=== PATIENT | male | born 1960 | race Caucasian/White ===

== ENCOUNTER 2018-07-08 18:49 | Emergency (ER) | payer MEDICARE, MEDICAID ==
[~2018-07-08] VITALS: Ht 180.3 cm; Wt 115.7 kg
--- OUTSIDE RECORDS SUMMARY | 2018-07-08 18:54 | XMS REPORT ---
Author Author SAIDA Medina [facility] Address Unknown Care Team Providers Care Research Methodologist Name Role Phone SAIDA Medina Unavailable PROBLEMS Unknown Problems ALLERGIES Substance Reaction Event Type Date Status N.K.D.A. Unknown Non Drug Allergy May, Unknown SOCIAL HISTORY No smoking Hx information available PLAN OF CARE VITAL SIGNS Blood pressure systolic 132 mmHg 2016-05-27 Blood pressure diastolic 88 mmHg 2016-05-27 MEDICATIONS Medication Instructions Dosage Frequency Start Date End Date Duration Status Oxycodone HCl Active Insulin Admin Supplies - Active RESULTS No Results PROCEDURES Procedure Date Ordered Related Diagnosis Body Site Dental no charge May 27, 2016 IMMUNIZATIONS No Known Immunizations
--- OUTSIDE RECORDS SUMMARY | 2018-07-08 18:54 | XMS REPORT ---
Author Author CORY ARORA Organization [employer] Address Unknown Phone Unavailable Care Team Providers Care Vice President Payer Name Role Phone CORY ARORA CP Unavailable Allergies, Adverse Reactions, Alerts Substance Reaction Event Type N.K.D.A. Info Not Available Non Drug Allergy Problems Problem Type Condition Code Onset Dates Condition Status Assessment Dental examination Z01.20 Active Medications Medication Code System Code Instructions Start Date End Date Status Dosage Oxycodone HCl [facility] [id number] not defined NovoLog [facility] [id number] not defined Levemir [facility] [id number] not defined Amoxicillin [facility] [address]-41 500 MG Orally Once a day Feb 26, 2015Jan 4 capsules one time Procedures Procedure Coding System Code Date INTRAORL-PERIAPICAL 1 FILM 58936 CPT-4 D0220 Feb 26, 2015 LTD ORAL EVALUATION - PROBLEM FOCUS CPT-4 D0140 Feb 26, 2015 Vital Signs Date/Time: Feb 26, 2015 Blood Pressure Diastolic 73 mmHg Blood Pressure Systolic 126 mmHg Results No Known Results Summary Purpose [employer] Submission
[2018-07-08 20:12] LABS: BASOPHILS % (AUTO) 0 % (0-10); EOSINOPHILS # (AUTO) 0.1 10^3/uL (0.0-0.3); EOSINOPHILS % (AUTO) 2 % (0-10); HEMATOCRIT 44 % (40-54); HEMOGLOBIN 14.8 G/DL (13.3-17.7); LYMPHOCYTES # (AUTO) 2.2 X 10^3 (1.0-4.0); LYMPHOCYTES % (AUTO) 29 % (12-44); MEAN CORPUSCULAR HEMOGLOBIN 28 PG (25-34); MEAN CORPUSCULAR HGB CONC 33 G/DL (32-36); MEAN CORPUSCULAR VOLUME 85 FL (80-99); MEAN PLATELET VOLUME 11.3 FL (7.4-10.4); MONOCYTES # (AUTO) 0.6 X 10^3 (0.0-1.0); MONOCYTES % (AUTO) 8 % (0-12); NEUTROPHILS # (AUTO) 4.6 X 10^3 (1.8-7.8); NEUTROPHILS % (AUTO) 62 % (42-75); PLATELET COUNT 153 10^3/uL (130-400); RED CELL DISTRIBUTION WIDTH 13.3 % (10.0-14.5); WHITE BLOOD COUNT 7.5 10^3/uL (4.3-11.0)
[2018-07-08 20:24] LABS: PROTHROMBIN TIME PATIENT 12.8 SEC (12.2-14.7)
[2018-07-08 20:25] VITALS: BP 105/64
[2018-07-08 20:31] LABS: ALBUMIN 4.1 GM/DL (3.2-4.5); BILIRUBIN,TOTAL 0.5 MG/DL (0.1-1.0); CALCIUM 8.9 MG/DL (8.5-10.1); CREATININE SERUM 1.24 MG/DL (0.60-1.30); POTASSIUM 4.6 MMOL/L (3.6-5.0); TOTAL PROTEIN 6.7 GM/DL (6.4-8.2)
--- NOTE | 2018-07-08 21:00 | Diagnostic Imaging Report ---
EXAMINATION: Right foot at 8:26 PM INDICATION: Ulcer Three views were obtained. There are no prior studies available for comparison. There is a suggestion of a soft tissue ulcer along the medial aspect of the interphalangeal joint of the great toe. The osseous structures in this area are unremarkable. There is no sign of bony destruction to indicate osteomyelitis. No other acute bony abnormality is appreciated. The Lisfranc joint is well maintained. There are degenerative and posttraumatic changes involving the ankle joint. Also, there are small wire-like metallic foreign bodies in the soft tissues along the plantar aspect of the forefoot and hindfoot. A prominent calcaneal spur is noted as well. IMPRESSION: 1. There is a small soft tissue ulcer along the medial aspect of the great toe. There is no evidence for osteomyelitis, however. 2. If clinical concern regarding osteomyelitis persists, then either a nuclear medicine three-phase bone scan or MRI would be recommended. However, the MRI may not be able to be performed due to the small radiopaque metallic foreign bodies in the foot. Dictated by: Dictated on workstation # [id number]
--- NOTE | 2018-07-08 21:01 | NUR ---
ASSUMED CARE OF PT @ THIS TIME.
[2018-07-08] MEDS ORDERED: LEVO500T2 PO (21:13)
--- NOTE | 2018-07-08 21:14 | ED Integumentary General ---
General Chief Complaint: Skin/Wound Problems Stated Complaint: SORE ON FOOT Nursing Triage Note: pt has diabetic wound on superior right foot. pt reports it starting bleeding 2 hours ago. pt went to [place] [facility] and they advised him to come here. pt reports having surgery on wound one year ago and didn't have problems with it until today. Source: patient Exam Limitations: no limitations History of Present Illness Date Seen by Provider: Jul 08, 2018 Time Seen by Provider: 19:52 Past Ayqmuhx-Xiklki-Jytajx Hx Patient Social History Recent Foreign Travel: No Contact w/Someone Who Travel: No Recent Infectious Disease Expo: No Recent Hopitalizations: No Past Medical History Surgeries: Yes Gallbladder Respiratory: No Cardiac: No Neurological: Yes (brain anuerysm ) Genitourinary: No Gastrointestinal: No Musculoskeletal: No Endocrine: Yes Diabetes, Non-Insulin dep HEENT: No Cancer: No Psychosocial: No Recent Skin Changes Physical Exam Vital Signs Vital Signs - First Documented 07/08/18 19:21 Temp 98.6 Pulse 75 Resp 20 B/P (MAP) 131/73 (92) Pulse Ox 95 O2 Delivery Room Air Capillary Refill : Less Than 3 Seconds Progress/Results/Core Measures Results/Orders Lab Results Laboratory Tests Test 07/08/18 20:00 Range/Units White Blood Count 7.5 4.3-11.0 10^3/uL Red Blood Count 5.22 4.35-5.85 10^6/uL Hemoglobin 14.8 13.3-17.7 G/DL Hematocrit 44 40-54 % Mean Corpuscular Volume 85 80-99 FL Mean Corpuscular Hemoglobin 28 25-34 PG Mean Corpuscular Hemoglobin Concent 33 32-36 G/DL Red Cell Distribution Width 13.3 10.0-14.5 % Platelet Count 153 130-400 10^3/uL Mean Platelet Volume 11.3 H 7.4-10.4 FL Neutrophils (%) (Auto) 62 42-75 % Lymphocytes (%) (Auto) 29 12-44 % Monocytes (%) (Auto) 8 0-12 % Eosinophils (%) (Auto) 2 0-10 % Basophils (%) (Auto) 0 0-10 % Neutrophils # (Auto) 4.6 1.8-7.8 X 10^3 Lymphocytes # (Auto) 2.2 1.0-4.0 X 10^3 Monocytes # (Auto) 0.6 0.0-1.0 X 10^3 Eosinophils # (Auto) 0.1 0.0-0.3 10^3/uL Basophils # (Auto) 0.0 0.0-0.1 10^3/uL Prothrombin Time 12.8 12.2-14.7 SEC INR Comment 1.0 0.8-1.4 Activated Partial Thromboplast Time 28 24-35 SEC Sodium Level 139 135-145 MMOL/L Potassium Level 4.6 3.6-5.0 MMOL/L Chloride Level 105 98-107 MMOL/L Carbon Dioxide Level 23 21-32 MMOL/L Anion Gap 11 5-14 MMOL/L Blood Urea Nitrogen 20 H 7-18 MG/DL Creatinine 1.24 0.60-1.30 MG/DL Estimat Glomerular Filtration Rate 60 BUN/Creatinine Ratio 16 Glucose Level 311 H 70-105 MG/DL Lactic Acid Level 1.04 0.50-2.00 MMOL/L Calcium Level 8.9 8.5-10.1 MG/DL Corrected Calcium 8.8 8.5-10.1 MG/DL Total Bilirubin 0.5 0.1-1.0 MG/DL Aspartate Amino Transf (AST/SGOT) 23 5-34 U/L Alanine Aminotransferase (ALT/SGPT) 19 0-55 U/L Alkaline Phosphatase 62 40-136 U/L C-Reactive Protein High Sensitivity 3.57 H 0.00-0.50 MG/DL Total Protein 6.7 6.4-8.2 GM/DL Albumin 4.1 3.2-4.5 GM/DL My Orders Orders - NOLAN BLANDON Cbc With Automated Diff (07/08/18 19:50) Comprehensive Metabolic Panel (07/08/18 19:50) Blood Culture (07/08/18 19:50) Protime With Inr (07/08/18 19:50) Partial Thromboplastin Time (07/08/18 19:50) Saline Lock/Iv-Start (07/08/18 19:50) Vital Signs Adult Sepsis Patie Q15M (07/08/18 19:50) O2 (07/08/18 19:50) Remove Rings In Anticipation O (07/08/18 19:50) Wound Culture (07/08/18 19:50) Lactic Acid Analyzer (07/08/18 19:50) Hs C Reactive Protein (07/08/18 19:50) Foot, Right, 3 View (07/08/18 19:50) Vital Signs/I&O 07/08/18 07/08/18 07/08/18 19:21 20:25 20:25 Temp 98.6 99.3 99.3 Pulse 75 72 72 Resp 20 14 10 B/P (MAP) 131/73 (92) 105/64 (78) 105/64 Pulse Ox 95 94 94 O2 Delivery Room Air Room Air Room Air Blood Pressure Mean: 78 Departure Impression Primary Impression: Diabetic ulcer of foot associated with type 1 diabetes mellitus, limited to breakdown of skin Disposition: HOME, SELF-CARE Condition: Stable/Unchanged Departure-Patient Inst. Decision time for Depature: 21:10 Referrals: NO,LOCAL PHYSICIAN (PCP) Primary Care Physician VERN WESTFALL MICHAEL G MD Patient Instructions: Diabetic Foot Ulcer (DC), Wound Care (DC) Add. Discharge Instructions: Take medication as directed. Monitor your blood sugar closely. Follow-up with Dr. Aaron at wound care by calling to schedule an appointment first thing Tuesday morning. Follow-up with [facility] within 1 week for recheck. Use the antibiotic ointment that was provided to change the dressing twice a day or if it becomes soiled. Return back to the emergency room should you start to develop fever, drainage, pain, worsening symptoms, or any other concerns as needed. All discharge instructions reviewed with patient and/or family. Voiced understanding. Scripts Levofloxacin (Levaquin) 500 Mg Tablet 500 MG PO DAILY for 10 Days, #10 TAB Prov: NOLAN BLANDON 07/08/18 NOLAN BLANDON Jul 08, 2018 21:14
[2018-07-08] MEDS ORDERED: LEVOFLOXACIN 500 MG TAB (LEVAQUIN) PO ONE (21:15)
[2018-07-08] MEDS ORDERED: MUPIROCIN 2% OINT 22 GM (BACTROBAN) TUBE ONE (21:21)
[2018-07-08 21:53] VITALS: BP 119/76
[2018-07-09] MEDS ORDERED: MUPIROCIN 2% OINT 22 GM (BACTROBAN) TUBE TOP SCH (09:00)
== END 2018-07-08 21:55 | disposition home or self-care (01) ==
LOC: ER 18:52
DX: E10.621 Type 1 diabetes mellitus with foot ulcer (principal); L97.511 Non-pressure chronic ulcer of other part of right foot limited to breakdown of skin; Z98.890 Other specified postprocedural states
CPT/HCPCS: 36415; 73630; 80053; 83605; 85025; 85610; 85730; 86141; 87040; 87070; 87077; 87205

== ENCOUNTER → 2018-07-12 | Outpatient (CLI) | payer MEDICARE, MEDICAID ==
[~2018-07-12] MED LIST: LEVO500T2 PO
== END ==
LOC: WOUNDCARE 09:22
PROVIDERS: ATTEND Surgery
DX: E11.621 Type 2 diabetes mellitus with foot ulcer (principal); I70.235 Atherosclerosis of native arteries of right leg with ulceration of other part of foot; L97.512 Non-pressure chronic ulcer of other part of right foot with fat layer exposed; E11.42 Type 2 diabetes mellitus with diabetic polyneuropathy; R54 Age-related physical debility; E66.01 Morbid (severe) obesity due to excess calories; Z68.35 Body mass index [BMI] 35.0-35.9, adult
CPT/HCPCS: 11042; 87070; 87205

== ENCOUNTER → 2018-07-25 | Outpatient (CLI) | payer MEDICARE, MEDICAID | LOC: WOUNDCARE 14:51 | PROVIDERS: ATTEND Surgery | DX: E11.621 Type 2 diabetes mellitus with foot ulcer (principal); E11.42 Type 2 diabetes mellitus with diabetic polyneuropathy; L97.512 Non-pressure chronic ulcer of other part of right foot with fat layer exposed; I70.235 Atherosclerosis of native arteries of right leg with ulceration of other part of foot; R54 Age-related physical debility; E66.01 Morbid (severe) obesity due to excess calories | CPT/HCPCS: 11042 ==

== ENCOUNTER → 2018-08-02 | Outpatient (CLI) | payer MEDICARE, MEDICAID | LOC: WOUNDCARE 10:12 | PROVIDERS: ATTEND Surgery | DX: E11.621 Type 2 diabetes mellitus with foot ulcer (principal); E11.42 Type 2 diabetes mellitus with diabetic polyneuropathy; L97.512 Non-pressure chronic ulcer of other part of right foot with fat layer exposed; E66.01 Morbid (severe) obesity due to excess calories; R54 Age-related physical debility | CPT/HCPCS: 99212 ==

== ENCOUNTER → 2018-08-09 | Outpatient (CLI) | payer MEDICARE, MEDICAID | LOC: WOUNDCARE 09:25 | PROVIDERS: ATTEND Surgery | DX: E11.621 Type 2 diabetes mellitus with foot ulcer (principal); L97.512 Non-pressure chronic ulcer of other part of right foot with fat layer exposed; E11.42 Type 2 diabetes mellitus with diabetic polyneuropathy; R54 Age-related physical debility; E66.01 Morbid (severe) obesity due to excess calories; Z68.35 Body mass index [BMI] 35.0-35.9, adult | CPT/HCPCS: 99212 ==

== ENCOUNTER → 2019-10-08 | Outpatient (CLI) | payer MEDICARE, MEDICAID ==
[~2019-10-08] MED LIST changes: +CATHETER FLUSH 10 ML SYR IV PRN; +HOLD METFORMIN - RECEIVED CONTRAST 20 ML VIAL IV SCH; +IOHEXOL 350 MG/ML 100 ML (OMNIPAQUE 350) VIAL IV ONE; +NS 100 ML (IVPB) BAG IV ONE
[2019-10-08 13:59] LABS: BUN/CREATININE RATIO 22; CALCIUM 9.1 MG/DL (8.5-10.1); CARBON DIOXIDE 22 MMOL/L (21-32); CHLORIDE 107 MMOL/L (98-107); CREATININE SERUM 1.06 MG/DL (0.60-1.30); GFR ESTIMATED > 60; GLUCOSE 97 MG/DL (70-105); POTASSIUM 4.5 MMOL/L (3.6-5.0); SODIUM 143 MMOL/L (135-145)
[2019-10-08 14:00] LABS: ALANINE AMINOTRANSFERASE 16 U/L (0-55); ALKALINE PHOSPHATASE 62 U/L (40-136); BILIRUBIN,TOTAL 0.4 MG/DL (0.1-1.0); TOTAL PROTEIN 6.5 GM/DL (6.4-8.2)
[2019-10-08 14:01] LABS: ALBUMIN 3.8 GM/DL (3.2-4.5)
--- NOTE | 2019-10-08 16:27 | Diagnostic Imaging Report ---
PROCEDURE: CT abdomen and pelvis with and without contrast. TECHNIQUE: Precontrast acquisitions were acquired through the abdomen and pelvis. Multiple contiguous axial images were obtained through the abdomen and pelvis after the administration of intravenous contrast. Auto Exposure Controls were utilized during the CT exam to meet ALARA standards for radiation dose reduction. INDICATION: Lower abdominal pain. COMPARISON: No prior studies are available for comparison. FINDINGS: The lung bases are clear. No discrete liver mass is detected. The gallbladder is surgically absent. No biliary ductal dilatation is identified. The pancreas and spleen are unremarkable. No adrenal mass is detected. Low-density lesion in the left kidney is noted measuring approximately 16 mm in size and most suggestive of a cyst. There is a hyperdense lesion in the posterior right kidney measuring approximately 5 to 6 mm in size. No significant enhancement is seen. This most like represents a hemorrhagic cyst. Even so, close follow-up would be recommended. Aorta is calcified but nonaneurysmal. No central retroperitoneal or mesenteric lymphadenopathy is identified. The small and large bowel loops are normal caliber. There is no free fluid or fluid collection identified. Bladder is decompressed. The prostate is unremarkable. No pelvic lymphadenopathy is detected. IMPRESSION: 1. Simple left renal cyst and probable tiny hemorrhagic right renal cyst. Even so, follow-up CT to confirm stability of the right renal lesion would be recommended. 2. No evidence of abdominal or pelvic lymphadenopathy or acute abnormality. Dictated by: Dictated on workstation # [id number]
== END ==
LOC: RAD FS 12:35
PROVIDERS: ATTEND Nurse Practitioner Family
DX: R10.9 Unspecified abdominal pain (principal); Z71.9 Counseling, unspecified
CPT/HCPCS: 36415; 74178; 80053

== ENCOUNTER → 2019-10-22 | Outpatient (CLI) | payer MEDICARE, MEDICAID ==
[~2019-10-22] MED LIST changes: -CATHETER FLUSH 10 ML SYR IV PRN; -HOLD METFORMIN - RECEIVED CONTRAST 20 ML VIAL IV SCH; -IOHEXOL 350 MG/ML 100 ML (OMNIPAQUE 350) VIAL IV ONE; -NS 100 ML (IVPB) BAG IV ONE
== END ==
LOC: WOUNDCARE 10:07
PROVIDERS: ATTEND Surgery
DX: E11.621 Type 2 diabetes mellitus with foot ulcer (principal); E11.42 Type 2 diabetes mellitus with diabetic polyneuropathy; E11.65 Type 2 diabetes mellitus with hyperglycemia; E11.52 Type 2 diabetes mellitus with diabetic peripheral angiopathy with gangrene; I96 Gangrene, not elsewhere classified; L97.512 Non-pressure chronic ulcer of other part of right foot with fat layer exposed; L03.115 Cellulitis of right lower limb
CPT/HCPCS: 11042; A6196; G0463

== ENCOUNTER 2020-01-11 14:23 | Emergency (ER) | payer MEDICARE, MEDICAID ==
[~2020-01-11] VITALS: Ht 180.3 cm; Wt 113.4 kg
[2020-01-11 14:29] VITALS: BP 175/92
--- NOTE | 2020-01-11 14:45 | ED Integumentary General ---
General Chief Complaint: Skin/Wound Problems Stated Complaint: R FOOT TOE ULCER Nursing Triage Note: PT AMB TO [facility] 6 WITH COMPLAINT OF CHRONIC UCLER ON RIGHT TOE. STATES WAS SENT HERE BY [facility] IN [place]. Source: patient Exam Limitations: no limitations History of Present Illness Date Seen by Provider: Jan 11, 2020 Time Seen by Provider: 14:28 Initial Comments Patient resents ER by private conveyance from his home in [place] with chief complaint of a one year-old wound in his right toe. He has been self doctoring it as well as has occasionally follow with Dr. Gonzalez in wound care. He follows with the clinic at [place] with [facility]. He says today they told him to come down to the ER to see if they could do something about it. Called the provider at the [place] clinic who is seeing him for a nursing visit and felt that the wound is worse so they ordered an x-ray of his foot which showed no signs of osteomyelitis. Because the patient was frustrated that this wound has not healed in the past year and was getting worse the ER and told him to come to the ER for further evaluation. The patient's not having any fever nausea vomiting. He is diabetic. Does not know his diabetic A1c. He has follow-up in the past with [facility] according to the RN and was last seen in early October. At that time he was offered wound care but the patient refused the referral stating he does not have an gasoline to come down here several times a week. At that time he was following in the clinic 2-3 times a week to have the wound changed by nursing staff. Patient is otherwise a poor historian. The patient is not on antibiotics at this time. Allergies and Home Medications Allergies Coded Allergies: No Known Drug Allergies (Unverified , 07/08/18) Home Medications Levofloxacin 500 Mg Tablet, 500 MG PO DAILY Prescribed by: NOLAN BLANDON on 07/08/182112 Sulfamethoxazole/Trimethoprim 1 Each Tablet, 1 EACH PO BID Prescribed by: REKHA ALBERTO on 01/11/20 1507 Patient Home Medication List Home Medication List Reviewed: Yes Review of Systems Review of Systems Constitutional: No chills, No diaphoresis, No fever, No malaise, No weakness EENTM: No hearing loss, No ear pain, No tearing Respiratory: No cough, No short of breath Cardiovascular: No chest pain, No edema Gastrointestinal: No abdominal pain, No nausea, No vomiting Genitourinary: No discharge, No dysuria Musculoskeletal: No back pain, No joint pain Skin: see HPI All Other Systems Reviewed Negative Unless Noted: Yes Past Cbctbqb-Oirpdt-Zajxqe Hx Patient Social History Alcohol Use: Denies Use Recreational Drug Use: Yes Drug of Choice: MARIJUANA Smoking Status: Never a Smoker Recent Foreign Travel: No Contact w/Someone Who Travel: No Recent Infectious Disease Expo: No Recent Hopitalizations: No Immunizations Up To Date Tetanus Booster (TDap): Unknown Past Medical History Surgeries: Yes Gallbladder Respiratory: No Cardiac: No Neurological: Yes (brain anuerysm ) Genitourinary: No Gastrointestinal: No Musculoskeletal: No Endocrine: Yes Diabetes, Non-Insulin dep HEENT: No Cancer: No Psychosocial: No Recent Skin Changes Physical Exam Vital Signs Vital Signs - First Documented 01/11/20 14:29 Temp 36.3 Pulse 80 Resp 20 B/P (MAP) 175/92 (119) Pulse Ox 96 O2 Delivery Room Air Capillary Refill : Less Than 3 Seconds General Appearance: WD/WN, no apparent distress HEENT: PERRL/EOMI, pharynx normal Neck: full range of motion, normal inspection Cardiovascular: normal peripheral pulses, regular rate, rhythm Respiratory: normal breath sounds, no respiratory distress, no accessory muscle use Gastrointestinal: normal bowel sounds, non tender Neurologic/Psychiatric: alert, oriented x 3 Skin: other (tunneling unstageable wound on his right great toe without exudate. Dressed with some lu foam.) Progress/Results/Core Measures Results/Orders Lab Results Laboratory Tests Test 01/11/20 14:42 Range/Units White Blood Count 6.4 4.3-11.0 10^3/uL Red Blood Count 5.81 4.35-5.85 10^6/uL Hemoglobin 16.3 13.3-17.7 G/DL Hematocrit 49 40-54 % Mean Corpuscular Volume 84 80-99 FL Mean Corpuscular Hemoglobin 28 25-34 PG Mean Corpuscular Hemoglobin Concent 34 32-36 G/DL Red Cell Distribution Width 13.8 10.0-14.5 % Platelet Count 172 130-400 10^3/uL Mean Platelet Volume 11.3 H 7.4-10.4 FL Neutrophils (%) (Auto) 53 42-75 % Lymphocytes (%) (Auto) 35 12-44 % Monocytes (%) (Auto) 8 0-12 % Eosinophils (%) (Auto) 3 0-10 % Basophils (%) (Auto) 1 0-10 % Neutrophils # (Auto) 3.4 1.8-7.8 X 10^3 Lymphocytes # (Auto) 2.3 1.0-4.0 X 10^3 Monocytes # (Auto) 0.5 0.0-1.0 X 10^3 Eosinophils # (Auto) 0.2 0.0-0.3 10^3/uL Basophils # (Auto) 0.0 0.0-0.1 10^3/uL Sodium Level 141 135-145 MMOL/L Potassium Level 4.3 3.6-5.0 MMOL/L Chloride Level 105 98-107 MMOL/L Carbon Dioxide Level 26 21-32 MMOL/L Anion Gap 10 5-14 MMOL/L Blood Urea Nitrogen 16 7-18 MG/DL Creatinine 0.96 0.60-1.30 MG/DL Estimat Glomerular Filtration Rate > 60 BUN/Creatinine Ratio 17 Glucose Level 107 H 70-105 MG/DL Calcium Level 9.7 8.5-10.1 MG/DL Corrected Calcium 9.6 8.5-10.1 MG/DL Total Bilirubin 0.4 0.1-1.0 MG/DL Aspartate Amino Transf (AST/SGOT) 16 5-34 U/L Alanine Aminotransferase (ALT/SGPT) 14 0-55 U/L Alkaline Phosphatase 51 40-136 U/L C-Reactive Protein High Sensitivity 0.82 H 0.00-0.50 MG/DL Total Protein 7.2 6.4-8.2 GM/DL Albumin 4.1 3.2-4.5 GM/DL My Orders Orders - REKHA ALBERTO Cbc With Automated Diff (01/11/20 14:34) Comprehensive Metabolic Panel (01/11/20 14:34) Hs C Reactive Protein (01/11/20 14:34) Vital Signs/I&O 01/11/20 14:29 Temp 36.3 Pulse 80 Resp 20 B/P (MAP) 175/92 (119) Pulse Ox 96 O2 Delivery Room Air Blood Pressure Mean: 119 Progress Progress Note #1: Time: 14:49 Progress Note Called the wound care clinic and they are already out for the day. Patient has aseptic vital signs. Wound appears chronic and tunneling. Unstageable. Progress Note #2: Time: 15:[address] Patterson will follow the patient outpatient. We have called left a voicemail with patient navigator at [facility] to follow-up with the patient and help with transportation. If his labs are unremarkable then we'll allow him to travel home. Consults : Consulting Physician: LANA PATTERSON MD Consults Notes Discussed the case with Dr. Patterson and he agrees see the patient in the clinic if he'll call for an appointment on Tuesday. He wants the wound Dry and to start antibiotics. Departure Impression Primary Impression: Diabetic foot ulcer associated with type 2 diabetes mellitus, with fat layer exposed Qualified Codes: E11.621 - Type 2 diabetes mellitus with foot ulcer; L97.512 - Non-pressure chronic ulcer of other part of right foot with fat layer exposed Disposition: HOME, SELF-CARE Condition: Stable Departure-Patient Inst. Decision time for Depature: 15:05 Referrals: [facility] (PCP/Family) Primary Care Physician LANA PATTERSON MD Patient Instructions: Diabetic Foot Ulcer (DC) Add. 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 Tuesday morning call Dr. Patterson, general surgeon and request a follow-up appointment in the clinic. Speak to the patient navigator at [facility] to see what resources are available to help with transportation. Return to the nearest ER if you should experience fever, nausea, or other worrisome symptoms. There is an emergency room in [place]. All discharge instructions reviewed with patient and/or family. Voiced understanding. Scripts Sulfamethoxazole/Trimethoprim (Bactrim Ds Tablet) 1 Each Tablet 1 EACH PO BID for 7 Days, #14 TAB 0 Refills Prov: REKHA ALBERTO 01/11/20 Copy Copies To 1: VERN WESTFALL DO; LANA PATTERSON MD, TITUS J Jan 11, 2020 14:45
[2020-01-11 14:52] LABS: BASOPHILS % (AUTO) 1 % (0-10); EOSINOPHILS # (AUTO) 0.2 10^3/uL (0.0-0.3); EOSINOPHILS % (AUTO) 3 % (0-10); HEMATOCRIT 49 % (40-54); HEMOGLOBIN 16.3 G/DL (13.3-17.7); LYMPHOCYTES # (AUTO) 2.3 X 10^3 (1.0-4.0); LYMPHOCYTES % (AUTO) 35 % (12-44); MEAN CORPUSCULAR HEMOGLOBIN 28 PG (25-34); MEAN CORPUSCULAR HGB CONC 34 G/DL (32-36); MEAN CORPUSCULAR VOLUME 84 FL (80-99); MEAN PLATELET VOLUME 11.3 FL (7.4-10.4); MONOCYTES # (AUTO) 0.5 X 10^3 (0.0-1.0); MONOCYTES % (AUTO) 8 % (0-12); NEUTROPHILS # (AUTO) 3.4 X 10^3 (1.8-7.8); NEUTROPHILS % (AUTO) 53 % (42-75); PLATELET COUNT 172 10^3/uL (130-400); WHITE BLOOD COUNT 6.4 10^3/uL (4.3-11.0)
[2020-01-11 15:01] LABS: ALBUMIN 4.1 GM/DL (3.2-4.5); CHLORIDE 105 MMOL/L (98-107); POTASSIUM 4.3 MMOL/L (3.6-5.0); SODIUM 141 MMOL/L (135-145)
[2020-01-11 15:02] LABS: CALCIUM 9.7 MG/DL (8.5-10.1)
[2020-01-11 15:04] LABS: GLUCOSE 107 MG/DL (70-105); TOTAL PROTEIN 7.2 GM/DL (6.4-8.2)
[2020-01-11 15:05] LABS: BILIRUBIN,TOTAL 0.4 MG/DL (0.1-1.0); CARBON DIOXIDE 26 MMOL/L (21-32)
[2020-01-11 15:07] LABS: ALKALINE PHOSPHATASE 51 U/L (40-136); CREATININE SERUM 0.96 MG/DL (0.60-1.30); GFR ESTIMATED > 60
[2020-01-11] MEDS ORDERED: SULF1TAB35 PO (15:07)
[2020-01-11 15:08] LABS: BUN/CREATININE RATIO 17
[2020-01-11 15:10] LABS: ALANINE AMINOTRANSFERASE 14 U/L (0-55)
== END 2020-01-11 15:20 | disposition home or self-care (01) ==
LOC: EDUNIT# 14:23 → ER 14:24
DX: E11.621 Type 2 diabetes mellitus with foot ulcer (principal); L97.512 Non-pressure chronic ulcer of other part of right foot with fat layer exposed
CPT/HCPCS: 36415; 80053; 85025; 86141

== ENCOUNTER → 2020-01-16 | Outpatient (CLI) | payer MEDICARE, MEDICAID ==
[~2020-01-16] MED LIST changes: +SULF1TAB35 PO
== END ==
LOC: WOUNDCARE 12:36
PROVIDERS: ATTEND Surgery
DX: E11.621 Type 2 diabetes mellitus with foot ulcer (principal); L97.514 Non-pressure chronic ulcer of other part of right foot with necrosis of bone; E11.42 Type 2 diabetes mellitus with diabetic polyneuropathy; E11.65 Type 2 diabetes mellitus with hyperglycemia; M86.471 Chronic osteomyelitis with draining sinus, right ankle and foot
CPT/HCPCS: 11044; 87070; 87205; A6260; G0463; L4360; 87077

== ENCOUNTER → 2020-01-16 | Outpatient (CLI) | payer MEDICARE, MEDICAID | LOC: LAB 14:10 | PROVIDERS: ATTEND Surgery | DX: E11.621 Type 2 diabetes mellitus with foot ulcer (principal); E11.42 Type 2 diabetes mellitus with diabetic polyneuropathy; L97.514 Non-pressure chronic ulcer of other part of right foot with necrosis of bone; E11.65 Type 2 diabetes mellitus with hyperglycemia; M86.471 Chronic osteomyelitis with draining sinus, right ankle and foot | CPT/HCPCS: 36415; 83036; 85652 ==

== ENCOUNTER → 2020-01-28 | Outpatient (CLI) | payer MEDICARE, MEDICAID | LOC: WOUNDCARE 10:08 | PROVIDERS: ATTEND Surgery | DX: E11.621 Type 2 diabetes mellitus with foot ulcer (principal); E11.42 Type 2 diabetes mellitus with diabetic polyneuropathy; L97.516 Non-pressure chronic ulcer of other part of right foot with bone involvement without evidence of necrosis; E11.65 Type 2 diabetes mellitus with hyperglycemia; M86.471 Chronic osteomyelitis with draining sinus, right ankle and foot; E11.52 Type 2 diabetes mellitus with diabetic peripheral angiopathy with gangrene | CPT/HCPCS: 11042; G0463 ==

== ENCOUNTER → 2020-02-04 | Outpatient (CLI) | payer MEDICARE, MEDICAID | LOC: WOUNDCARE 10:42 | PROVIDERS: ATTEND Surgery | DX: E11.621 Type 2 diabetes mellitus with foot ulcer (principal); E11.42 Type 2 diabetes mellitus with diabetic polyneuropathy; L97.516 Non-pressure chronic ulcer of other part of right foot with bone involvement without evidence of necrosis; E11.65 Type 2 diabetes mellitus with hyperglycemia; M86.471 Chronic osteomyelitis with draining sinus, right ankle and foot; E11.52 Type 2 diabetes mellitus with diabetic peripheral angiopathy with gangrene | CPT/HCPCS: 11042; G0463 ==

== ENCOUNTER → 2020-02-11 | Outpatient (CLI) | payer MEDICARE, MEDICAID | LOC: WOUNDCARE 10:28 | PROVIDERS: ATTEND Surgery | DX: E11.621 Type 2 diabetes mellitus with foot ulcer (principal); E11.42 Type 2 diabetes mellitus with diabetic polyneuropathy; L97.516 Non-pressure chronic ulcer of other part of right foot with bone involvement without evidence of necrosis; E11.65 Type 2 diabetes mellitus with hyperglycemia; M86.471 Chronic osteomyelitis with draining sinus, right ankle and foot; E11.52 Type 2 diabetes mellitus with diabetic peripheral angiopathy with gangrene | CPT/HCPCS: 11044 ==

== ENCOUNTER → 2020-02-18 | Outpatient (CLI) | payer MEDICARE, MEDICAID | LOC: WOUNDCARE 10:12 | PROVIDERS: ATTEND Surgery | DX: I96 Gangrene, not elsewhere classified (principal); E11.621 Type 2 diabetes mellitus with foot ulcer; E11.42 Type 2 diabetes mellitus with diabetic polyneuropathy; E11.65 Type 2 diabetes mellitus with hyperglycemia; M86.471 Chronic osteomyelitis with draining sinus, right ankle and foot; L97.516 Non-pressure chronic ulcer of other part of right foot with bone involvement without evidence of necrosis | CPT/HCPCS: 11042; G0463 ==

== ENCOUNTER → 2020-03-03 | Outpatient (CLI) | payer MEDICARE, MEDICAID | LOC: WOUNDCARE 10:02 | PROVIDERS: ATTEND Surgery | DX: I96 Gangrene, not elsewhere classified (principal); L97.514 Non-pressure chronic ulcer of other part of right foot with necrosis of bone; E11.621 Type 2 diabetes mellitus with foot ulcer; E11.42 Type 2 diabetes mellitus with diabetic polyneuropathy; E11.65 Type 2 diabetes mellitus with hyperglycemia; M86.471 Chronic osteomyelitis with draining sinus, right ankle and foot; L92.8 Other granulomatous disorders of the skin and subcutaneous tissue | CPT/HCPCS: 11044; A6207; G0463 ==

== ENCOUNTER → 2020-03-10 | Outpatient (CLI) | payer MEDICARE, MEDICAID ==
[~2020-03-10] MED LIST changes: +ATOR20TA49 PO; +EMPA25TA PO; +INSU100I13 SQ; +MULT-1136 PO
== END ==
LOC: WOUNDCARE 11:05
PROVIDERS: ATTEND Surgery
DX: E11.621 Type 2 diabetes mellitus with foot ulcer (principal); E11.42 Type 2 diabetes mellitus with diabetic polyneuropathy; L97.516 Non-pressure chronic ulcer of other part of right foot with bone involvement without evidence of necrosis; E11.65 Type 2 diabetes mellitus with hyperglycemia; M86.471 Chronic osteomyelitis with draining sinus, right ankle and foot; E11.52 Type 2 diabetes mellitus with diabetic peripheral angiopathy with gangrene
CPT/HCPCS: 11042; G0463

== ENCOUNTER → 2020-03-10 | Outpatient (CLI) | payer MEDICARE, MEDICAID ==
[~2020-03-10] MED LIST changes: -ATOR20TA49 PO; -EMPA25TA PO; -INSU100I13 SQ; -MULT-1136 PO
--- NOTE | 2020-03-10 13:40 | Diagnostic Imaging Report ---
INDICATION: Ulcer. Pain. COMPARISON: 07/08/2018 FINDINGS: Multiple radiographic views of the right foot were obtained. Curvilinear metallic foreign bodies are noted projecting over the lateral plantar soft tissues of the foot. There is well circumscribed defect involving the distal margins of the 2nd proximal phalanx at the proximal interphalangeal joint space. This has a chronic appearance. There is subtle lucency projecting over the soft tissues of the 1st interphalangeal joint space. Evaluation of the lateral view also demonstrates probable osteolytic process involving the proximal margins of the 1st distal phalanx. This is concerning for underlying osteomyelitis. No acute fracture or dislocation is seen. Joint spaces are maintained. IMPRESSION: 1. Findings strongly concerning for osteomyelitis of the 1st distal phalanx. 2. Soft tissue foreign bodies as described above. Dictated by: Dictated on workstation # [id number]
== END ==
LOC: RAD 12:17
PROVIDERS: ATTEND Surgery
DX: E11.621 Type 2 diabetes mellitus with foot ulcer (principal); E11.42 Type 2 diabetes mellitus with diabetic polyneuropathy; L97.514 Non-pressure chronic ulcer of other part of right foot with necrosis of bone; E11.65 Type 2 diabetes mellitus with hyperglycemia; M86.471 Chronic osteomyelitis with draining sinus, right ankle and foot; L92.8 Other granulomatous disorders of the skin and subcutaneous tissue; I70.235 Atherosclerosis of native arteries of right leg with ulceration of other part of foot
CPT/HCPCS: 73630

== ENCOUNTER → 2020-03-17 | Outpatient (CLI) | payer MEDICARE, MEDICAID | LOC: WOUNDCARE 10:19 | PROVIDERS: ATTEND Surgery | DX: E11.52 Type 2 diabetes mellitus with diabetic peripheral angiopathy with gangrene (principal); E11.621 Type 2 diabetes mellitus with foot ulcer; E11.42 Type 2 diabetes mellitus with diabetic polyneuropathy; E11.65 Type 2 diabetes mellitus with hyperglycemia; L97.514 Non-pressure chronic ulcer of other part of right foot with necrosis of bone; I96 Gangrene, not elsewhere classified; M86.471 Chronic osteomyelitis with draining sinus, right ankle and foot | CPT/HCPCS: 11044; G0463 ==

== ENCOUNTER → 2020-03-24 | Outpatient (CLI) | payer MEDICARE, MEDICAID | LOC: WOUNDCARE 10:09 | PROVIDERS: ATTEND Surgery | DX: E11.621 Type 2 diabetes mellitus with foot ulcer (principal); E11.42 Type 2 diabetes mellitus with diabetic polyneuropathy; E11.65 Type 2 diabetes mellitus with hyperglycemia; I96 Gangrene, not elsewhere classified; L97.514 Non-pressure chronic ulcer of other part of right foot with necrosis of bone; M86.471 Chronic osteomyelitis with draining sinus, right ankle and foot | CPT/HCPCS: 11044; G0463 ==

== ENCOUNTER → 2020-03-31 | Outpatient (CLI) | payer MEDICARE, MEDICAID | LOC: WOUNDCARE 09:54 | PROVIDERS: ATTEND Surgery | DX: E11.621 Type 2 diabetes mellitus with foot ulcer (principal); E11.42 Type 2 diabetes mellitus with diabetic polyneuropathy; L97.514 Non-pressure chronic ulcer of other part of right foot with necrosis of bone; E11.65 Type 2 diabetes mellitus with hyperglycemia; M86.471 Chronic osteomyelitis with draining sinus, right ankle and foot; E11.52 Type 2 diabetes mellitus with diabetic peripheral angiopathy with gangrene | CPT/HCPCS: 11044; G0463 ==

== ENCOUNTER → 2020-04-07 | Outpatient (CLI) | payer MEDICARE, MEDICAID | LOC: WOUNDCARE 09:57 | PROVIDERS: ATTEND Surgery | DX: E11.621 Type 2 diabetes mellitus with foot ulcer (principal); E11.42 Type 2 diabetes mellitus with diabetic polyneuropathy; E11.65 Type 2 diabetes mellitus with hyperglycemia; I96 Gangrene, not elsewhere classified; L97.514 Non-pressure chronic ulcer of other part of right foot with necrosis of bone; M86.471 Chronic osteomyelitis with draining sinus, right ankle and foot | CPT/HCPCS: 11044; G0463 ==

== ENCOUNTER 2020-04-14 05:37 | Outpatient (RCR) | payer MEDICARE, MEDICAID ==
[~2020-04-14] VITALS: Ht 170 cm; Wt 104.5 kg
[2020-04-14] MEDS ORDERED: MULT-1136 PO (12:20)
[2020-04-14] MEDS ORDERED: INSU100I13 SQ (12:20)
[2020-04-14] MEDS ORDERED: ATOR20TA49 PO (12:20)
[2020-04-14] MEDS ORDERED: EMPA25TA PO (12:20)
== END 2020-04-14 12:27 | disposition home or self-care (01) ==
LOC: PREOP 05:37
PROVIDERS: ATTEND Surgery
DX: Z01.818 Encounter for other preprocedural examination (principal)

== ENCOUNTER 2020-05-22 05:39 | Outpatient (RCR) | payer MEDICARE, MEDICAID ==
[~2020-05-22] VITALS: Ht 180 cm; Wt 111.8 kg
[~2020-05-22 05:39] MED LIST changes: +ATOR20TA49 PO; +EMPA25TA PO; +INSU100I13 SQ; +MULT-1136 PO
== END 2020-05-22 16:22 | disposition home or self-care (01) ==
LOC: PREOP 05:39
PROVIDERS: ATTEND Surgery
DX: Z01.818 Encounter for other preprocedural examination (principal); M86.171 Other acute osteomyelitis, right ankle and foot

== ENCOUNTER 2020-05-30 10:36 | Day surgery (SDC) | payer MEDICARE, MEDICAID ==
[2020-05-30] VITALS (12 sets, daily range): BP systolic 101–134; BP diastolic 56–93
[~2020-05-30] VITALS: Ht 180 cm; Wt 111.8 kg
[2020-05-30] MEDS ORDERED: LIDOCAINE 1% INJ 20 ML 20 ML VIAL ONE (10:42)
--- NOTE | 2020-05-30 10:44 | Progress Note-Pre Operative ---
Pre-Operative Progress Note H&P Reviewed The H&P was reviewed, patient examined and no changes noted. Date Seen by Provider: May 30, 2020 Time Seen by Provider: 10:40 Date H&P Reviewed: May 30, 2020 Time H&P Reviewed: 10:40 Pre-Operative Diagnosis: right great toe osteomyelitis LANA WADE MD May 30, 2020 10:44
[2020-05-30] MEDS ORDERED: HYDROcodone/APAP 5 MG/325 MG (LORTAB) TAB PO ONE (10:45)
[2020-05-30] MEDS ORDERED: ACETAMINOPHEN 325 MG TABLET PO PRN (10:45)
[2020-05-30] MEDS ORDERED: morphine INJ 10 MG/ML 1ML (SYR OR VIAL) IVP PRN ×2 (10:45)
[2020-05-30] MEDS ORDERED: ONDANSETRON 4 MG/2 ML (SDV) Z0FRAN IVP PRN ×2 (10:45→12:45)
[2020-05-30] MEDS ORDERED: LACTATED RINGERS 1,000 ML IV PRN ×2 (10:45→12:45)
[2020-05-30] MEDS ORDERED: ceFAZolin 2 GM IV Premixed 50 ML IV ONE (10:45)
[2020-05-30] MEDS ORDERED: HYDR-3817 PO (10:46)
--- NOTE | 2020-05-30 10:47 | Discharge Inst-Surgical ---
D/C Lap Instructions-MAURO New, Converted, or Re-Newed RX: RX on Chart Follow Up Appt in 2 weeks Activity as tolerated No driving for 24 hours No driving while on pain medications change dressing with gauze daily and PRN Regular Diet Symptoms to Report: Fever over 101 degree F, Nausea/Vomiting Infection Signs and Symptoms to report: Increased redness, Foul odor of wound, Increased drainage Bathing instructions: May shower Operative Area Clean/Dry; Keep incision clean/dry If any problems/questions: Contact your physician or go to Emergency Room LANA WADE MD May 30, 2020 10:47
[2020-05-30] MEDS ORDERED: LIDOCAINE PF 2% 5 ML (XYLOCAINE) VIAL ONE (10:58)
[2020-05-30] MEDS ORDERED: SEVOFLURANE (ULTANE) 15 ML INHAL SOLN ONE ×2 (10:58→12:14)
[2020-05-30] MEDS ORDERED: ONDANSETRON 4 MG/2 ML (SDV) Z0FRAN ONE (10:58)
[2020-05-30] MEDS ORDERED: proPOfol 200 MG/20 ML (DIPRIVAN) VIAL IV ONE (10:58)
[2020-05-30] MEDS ORDERED: fentaNYL INJECTION 100 MCG/2 ML AMP ONE (10:59)
[2020-05-30] MEDS ORDERED: MIDAZOLAM 2 MG/2 ML (VERSED) VIAL ONE (10:59)
[2020-05-30] MEDS ORDERED: ceFAZolin 2 GM IV Premixed 50 ML ONE (11:01)
[2020-05-30] MEDS ORDERED: LIDOCAINE/EPI 1%-1:200,000 (XYLOCAINE) 10 ML VIAL ONE (11:51)
--- NOTE | 2020-05-30 12:30 | Progress Note-Post Operative ---
Post-Operative Progess Note Surgeon (s)/Ball Rolling Machine Operator (s) Surgeon LANA WADE MD Ball Rolling Machine Operator: none Pre-Operative Diagnosis right great toe osteomyelitis Post-Operative Diagnosis same Procedure & Operative Findings Date of Procedure 05/30/20 Procedure Performed/Findings right great toe amputation Anesthesia Type LMA with local Estimated Blood Loss Estimated blood loss (mL): minimal Specimens/Packing Specimens Removed right great toe LANA WADE MD May 30, 2020 12:30
[2020-05-30] MEDS ORDERED: morphine INJ 10 MG/ML 1ML (SYR OR VIAL) IVP ONE (12:45)
[2020-05-30] MEDS ORDERED: HYDROmorphone 2 MG/ML VIAL (DILAUDID) IV ONE (12:45)
[2020-05-30] MEDS ORDERED: fentaNYL INJECTION 100 MCG/2 ML AMP IVP ONE (12:45)
--- NOTE | 2020-05-30 13:42 | Anesthesia-General Post-Op ---
General Patient Condition Mental Status/LOC: Same as Preop Cardiovascular: Satisfactory Nausea/Vomiting: Absent Respiratory: Satisfactory Pain: Controlled Complications: Absent Post Op Complications Complications None Follow Up Care/Instructions Patient Instructions None needed. Anesthesia/Patient Condition Patient Condition Patient is doing well, no complaints, stable vital signs, no apparent adverse anesthesia problems. No complications reported per nursing. DONTA FOFANA CRNA May 30, 2020 13:42
[2020-05-30] MEDS ORDERED: HYDROcodone/APAP 7.5 MG/325 MG (LORTAB, LORCET PLUS) TABLET PO ONE ×2 (14:32→14:45)
--- NOTE | 2020-05-30 17:27 | OPERATIVE REPORT ---
DATE OF SERVICE: 05/30/2020 ATTENDING DIRECTOR MEDIA: [place], [place]. PREOPERATIVE DIAGNOSIS: Right great toe osteomyelitis. POSTOPERATIVE DIAGNOSES: Right great toe osteomyelitis. PROCEDURE: Right great toe amputation with septic arthrosis. DISPOSITION: The patient tolerated the procedure well. INDICATIONS: The patient is a 60-year-old male with multiple medical problems including diabetes, hypertension, hypercholesterolemia. He also is noncompliant and does continue to smoke. He has had the development of ulcerations along the right foot and toe and has been seen by wound care; however, has had recurrent issues with progression of wound as well as surrounding cellulitis. X-ray was performed, which was consistent with an osteomyelitis of the right great toe and he does have a significant amount of soft tissue swelling around the metacarpophalangeal joint. DESCRIPTION OF PROCEDURE: The patient was brought to the operating room, laid supine on the table. After adequate IV pain and sedative medications and general laryngeal mask airway intubation, the right lower extremity was prepped and draped in standard surgical fashion. A 0.5% Marcaine with epinephrine was then used to anesthetize the overlying skin and subcutaneous tissue along the right forefoot and skin flaps were marked off with a marking pen. Skin incisions were then made using a 15 blade. We then proceeded with dissection of subcutaneous tissue to the fascia and into the joint capsule where there was a significant amount of purulent material. The entire phalanx appeared to be soft, consistent with an osteomyelitis; however, the head of the metatarsal appeared to be intact clinically. The amputation was completed under direct visualization using electrocautery with visualization of good hemostasis. The wound was then closed, closing the superior and inferior flaps using 0 Prolene horizontal mattress sutures. Wound was then cleaned and covered with 4 x 4 gauze followed by Kerlix wrap, Coban and a walking shoe. The patient tolerated the procedure well. We will have him follow up in office approximately two weeks. He will be instructed to proceed with the necessary lifestyle and diet accommodation and medical compliance to prevent reoccurrence and further wound issues of the extremities and prevent further amputations. Job ID: [id number] DocumentID: [id number] Dictated Date: 05/30/2020 12:35:13 Equipment Service Lead Date: 05/30/2020 17:26:55 Dictated By: LANA WADE MD
== END 2020-05-30 14:50 ==
LOC: SDC 10:36
PROVIDERS: ATTEND Surgery
DX: E11.69 Type 2 diabetes mellitus with other specified complication (principal); M86.471 Chronic osteomyelitis with draining sinus, right ankle and foot; E11.40 Type 2 diabetes mellitus with diabetic neuropathy, unspecified; E78.00 Pure hypercholesterolemia, unspecified; Z79.899 Other long term (current) drug therapy; Z86.73 Personal history of transient ischemic attack (TIA), and cerebral infarction without residual deficits; Z20.822 Contact with and (suspected) exposure to COVID-19; Z80.9 Family history of malignant neoplasm, unspecified; Z87.891 Personal history of nicotine dependence
CPT/HCPCS: 28820; 82962; 87081; U0002; 87635; 88305; 88311

== ENCOUNTER 2020-06-17 13:22 | Inpatient (IN) | payer MEDICARE, MEDICAID ==
[~2020-06-17] VITALS: Ht 180.3 cm; Wt 100.1 kg
[~2020-06-17 13:22] MED LIST changes: +HYDR-3817 PO; +INSU100I13 SC; -INSU100I13 SQ
--- NOTE | 2020-06-17 13:50 | ED General ---
General Stated Complaint: RT FOOT PAIN History of Present Illness Date Seen by Provider: Jun 17, 2020 Time Seen by Provider: 13:35 Initial Comments 60-year-old male presents with right foot pain. Recent past medical history of right great toe amputation due to diabetic peripheral neuropathy and ulceration with progressive wound leading to osteomyelitis. Patient has not had follow-up with the surgeon as he states he was unable to get a ride to [place]. Has been seen at the [facility] by his PCP states has been on a few antibiotics since the surgery but gradually the pain and redness has gotten worse. Seen by his PCP today and given a gas card to get here to [facility] for evaluation. Allergies and Home Medications Allergies Coded Allergies: No Known Drug Allergies (Unverified , 05/30/20) Home Medications Atorvastatin Calcium 20 Mg Tablet, 20 MG PO DAILY, (Reported) Empagliflozin 25 Mg Tablet, 25 MG PO DAILY, (Reported) Hydrocodone/Acetaminophen 1 Each Tablet, 1 EACH PO Q4H Prescribed by: LANA PATTERSON on 05/30/20 1046 Multivitamin 1 Each Tablet, 1 EACH PO DAILY, (Reported) Patient Home Medication List Home Medication List Reviewed: Yes Review of Systems Review of Systems Constitutional: see HPI; No chills, No fever; malaise (chronic pain); No wea kness Respiratory: No cough, No short of breath Cardiovascular: No chest pain; edema (R foot); No palpitations Gastrointestinal: No abdominal pain, No loss of appetite, No nausea, No vomitin g Musculoskeletal: muscle pain, other (chronic pain- extremities) Skin: see HPI, change in color (foot redness); No rash Psychiatric/Neurological: Numbness (feet, nothing new) Past Syzptzh-Aytxyy-Yabnzt Hx Past Med/Social Hx: Reviewed Nursing Past Med/Soc Hx Patient Social History Drug of Choice: MARIJUANA Former Smoker, Quit: Apr 14, 1977 2nd Hand Smoke Exposure: No Recent Hopitalizations: No Immunizations Up To Date Tetanus Booster (TDap): Unknown Date of Pneumonia Vaccine: Feb 04, 2020 Date of Influenza Vaccine: Feb 04, 2020 Seasonal Allergies Seasonal Allergies: No Past Medical History Surgeries: Yes Appendectomy, Gallbladder Respiratory: No Currently Using CPAP: No Currently Using BIPAP: No Cardiac: Yes High Cholesterol Neurological: Yes (brain anuerysm ) Stroke Sexually Transmitted Disease: No HIV/AIDS: No Genitourinary: No Gastrointestinal: No Gastroesophageal Reflux Musculoskeletal: No Endocrine: Yes Diabetes, Non-Insulin dep HEENT: Yes (RIGHT EYE) Cataract Loss of Vision: Denies Hearing Impairment: Denies Cancer: No Psychosocial: No Integumentary: No (pt presents with diabetic wound on right foot ) Recent Skin Changes Blood Disorders: No Adverse Reaction/Blood Tranf: No (N/A) Physical Exam Vital Signs Vital Signs - First Documented 06/17/20 13:30 Temp 36.1 Pulse 87 Resp 16 B/P (MAP) 135/63 (87) Pulse Ox 97 O2 Delivery Room Air Capillary Refill : Height, Weight, BMI Height: 5'11.00" Weight: 255lbs. oz. [id number]; 34.50 BMI Method:Stated General Appearance: No Apparent Distress, WD/WN HEENT: PERRL/EOMI, Normal ENT Inspection Respiratory: Chest Non Tender, Lungs Clear Cardiovascular: Regular Rate, Rhythm, No JVD Extremity: Other (RLE- foot, erythema dorsum of foot w mild edema. Stump of Great toe amputation with intact sutures and poor wound healing.) Neurologic/Psychiatric: Alert, Oriented x3, Normal Mood/Affect Focused Exam Lactate Level 06/17/20 14:10: Lactic Acid Level 1.58 Lactic Acid Level Laboratory Tests Test 06/17/20 14:10 Lactic Acid Level 1.58 MMOL/L (0.50-2.00) Progress/Results/Core Measures Suspected Sepsis SIRS Temperature: Pulse: Respiratory Rate: Laboratory Tests 06/17/20 13:50: White Blood Count 9.6 Blood Pressure / Mean: 06/17/20 14:10: Lactic Acid Level 1.58 Laboratory Tests 06/17/20 13:50: Creatinine 0.88, Platelet Count 188, Total Bilirubin 0.7 Results/Orders Lab Results Laboratory Tests Test 06/17/20 13:50 06/17/20 14:10 Range/Units White Blood Count 9.6 4.3-11.0 10^3/uL Red Blood Count 5.39 4.35-5.85 10^6/uL Hemoglobin 14.8 13.3-17.7 G/DL Hematocrit 46 40-54 % Mean Corpuscular Volume 85 80-99 FL Mean Corpuscular Hemoglobin 27 25-34 PG Mean Corpuscular Hemoglobin Concent 32 32-36 G/DL Red Cell Distribution Width 13.1 10.0-14.5 % Platelet Count 188 130-400 10^3/uL Mean Platelet Volume 11.4 H 7.4-10.4 FL Immature Granulocyte % (Auto) 0 % Neutrophils (%) (Auto) 76 H 42-75 % Lymphocytes (%) (Auto) 13 12-44 % Monocytes (%) (Auto) 10 0-12 % Eosinophils (%) (Auto) 0 0-10 % Basophils (%) (Auto) 0 0-10 % Neutrophils # (Auto) 7.3 1.8-7.8 X 10^3 Lymphocytes # (Auto) 1.2 1.0-4.0 X 10^3 Monocytes # (Auto) 0.9 0.0-1.0 X 10^3 Eosinophils # (Auto) 0.0 0.0-0.3 10^3/uL Basophils # (Auto) 0.0 0.0-0.1 10^3/uL Immature Granulocyte # (Auto) 0.0 0.0-0.1 10^3/uL Sodium Level 129 L 135-145 MMOL/L Potassium Level 4.9 3.6-5.0 MMOL/L Chloride Level 94 L 98-107 MMOL/L Carbon Dioxide Level 25 21-32 MMOL/L Anion Gap 10 5-14 MMOL/L Blood Urea Nitrogen 23 H 7-18 MG/DL Creatinine 0.88 0.60-1.30 MG/DL Estimat Glomerular Filtration Rate > 60 BUN/Creatinine Ratio 26 Glucose Level 483 *H 70-105 MG/DL Calcium Level 9.2 8.5-10.1 MG/DL Corrected Calcium 9.4 8.5-10.1 MG/DL Total Bilirubin 0.7 0.1-1.0 MG/DL Aspartate Amino Transf (AST/SGOT) 12 5-34 U/L Alanine Aminotransferase (ALT/SGPT) 13 0-55 U/L Alkaline Phosphatase 81 40-136 U/L Total Protein 7.5 6.4-8.2 GM/DL Albumin 3.8 3.2-4.5 GM/DL Lactic Acid Level 1.58 0.50-2.00 MMOL/L My Orders Orders - ROVENSTREYNA RUVALCABA DO Ed Iv/Invasive Line Start (06/17/20 13:50) Cbc With Automated Diff (06/17/20 13:50) Comprehensive Metabolic Panel (06/17/20 13:50) Lactic Acid Analyzer (06/17/20 13:50) Foot 3 View Right (06/17/20 13:50) Ns Iv 1000 Ml (Sodium Chloride 0.9%) (06/17/20 14:00) Fentanyl Injection (Sublimaze Injection (06/17/20 14:00) Piperacillin Sodium/Tazobactam (Zosyn Vi (06/17/20 14:30) Vancomycin Injection (Vancomycin Injecti (06/17/20 14:45) Medications Given in ED Current Medications Medications Dose Ordered Sig/Quinn Route Start Time Stop Time Status Last Admin Dose Admin Fentanyl Citrate 50 mcg ONCE ONCE IVP 06/17/20 14:00 06/17/20 14:01 DC 06/17/20 14:07 50 MCG Piperacillin Sod/ Tazobactam Sod 4.5 gm/Sodium Chloride 100 ml @ 200 mls/hr ONCE ONCE IV 06/17/20 14:30 06/17/20 14:59 DC 06/17/20 15:10 200 MLS/HR Vancomycin HCl 1000 mg/Sodium Chloride 250 ml @ 250 mls/hr ONCE ONCE IV 06/17/20 14:45 06/17/20 15:44 06/17/20 15:39 250 MLS/HR Vital Signs/I&O 06/17/20 13:30 Temp 36.1 Pulse 87 Resp 16 B/P (MAP) 135/63 (87) Pulse Ox 97 O2 Delivery Room Air Capillary Refill : Diagnostic Imaging Comments Date of Exam:06/17/20 FOOT 3 VIEW RIGHT INDICATION: Pain at site of great toe amputation. TECHNIQUE/COMPARISON: AP, oblique, and lateral views of the right foot were obtained. Comparison is made to the study of 03/10/2020. FINDINGS: There has been amputation of the great toe phalanges. There is now irregular lucency and probable pathologic fracture in the distal shaft of the 1st metatarsal. The distal articular surface remains smooth; however, there is surrounding swelling and dystrophic calcification. Otherwise, there has also been development of focal lucency within the distal aspect of the 2nd proximal phalanx. This is smooth and fairly well demarcated and could be post operative or related to previous trauma. Linear metallic foreign objects in the plantar aspect of the foot have not significantly changed position. There appears to be periosteal reaction surrounding the 5th proximal phalanx. IMPRESSION: Extensive swelling of the forefoot suggesting cellulitis with lytic change and probable pathologic fracture of the distal aspect of the 1st metatarsal indicating underlying osteomyelitis. Dystrophic calcification and possible periosteal reaction involving the 5th proximal phalanx may represent additional site of bone infection. There is also well demarcated lucency along the distal margin of the 2nd proximal phalanx which was not definitely appreciated on the previous study. This could be post surgical although clinical correlation is recommended. If there is significant inflammation to this region, the possibility of infection is not excluded. Dictated on workstation # [id number] Dict: 06/17/20 1417 Trans: 06/17/20 1424 [id number] Interpreted by: DONOVAN MUÑOZ MD Electronically signed by: Departure Communication (Admissions) Time/Spoke to Admitting Phy: 14:[address] Burnett, accepts for admission Time/Spoke to Consulting Phy: 14:[address] Patterson, will see pt in surgical consultation Impression Primary Impression: Osteomyelitis Qualified Codes: M86.9 - Osteomyelitis, unspecified Disposition: 30 STILL A PATIENT Condition: Stable Admissions Decision to Admit Reason: Admit from ER (General) Decision to Admit/Date: Jun 17, 2020 Time/Decision to Admit Time: 13:40 Departure-Patient Inst. Referrals: [facility] [place] (PCP/Family) Primary Care Physician REYNA BANUELOS DO Jun 17, 2020 13:50
[2020-06-17 14:00] LABS: HEMATOCRIT 46 % (40-54); HEMOGLOBIN 14.8 G/DL (13.3-17.7); MEAN CORPUSCULAR HEMOGLOBIN 27 PG (25-34); WHITE BLOOD COUNT 9.6 10^3/uL (4.3-11.0)
[2020-06-17] MEDS ORDERED: fentaNYL INJECTION 100 MCG/2 ML AMP IVP ONE (14:00)
[2020-06-17] MEDS ORDERED: NS IV 1000 ML 1,000 ML IV SCH (14:00)
[2020-06-17 14:01] LABS: BASOPHILS % (AUTO) 0 % (0-10); EOSINOPHILS % (AUTO) 0 % (0-10); LYMPHOCYTES % (AUTO) 13 % (12-44); MEAN CORPUSCULAR HGB CONC 32 G/DL (32-36); MEAN CORPUSCULAR VOLUME 85 FL (80-99); MEAN PLATELET VOLUME 11.4 FL (7.4-10.4); MONOCYTES % (AUTO) 10 % (0-12); NEUTROPHILS % (AUTO) 76 % (42-75); PLATELET COUNT 188 10^3/uL (130-400)
[2020-06-17 14:02] LABS: LYMPHOCYTES # (AUTO) 1.2 X 10^3 (1.0-4.0); MONOCYTES # (AUTO) 0.9 X 10^3 (0.0-1.0); NEUTROPHILS # (AUTO) 7.3 X 10^3 (1.8-7.8)
[2020-06-17 14:21] LABS: BUN/CREATININE RATIO 26; CARBON DIOXIDE 25 MMOL/L (21-32); CHLORIDE 94 MMOL/L (98-107); CREATININE SERUM 0.88 MG/DL (0.60-1.30); GFR ESTIMATED > 60; POTASSIUM 4.9 MMOL/L (3.6-5.0); SODIUM 129 MMOL/L (135-145)
[2020-06-17 14:22] LABS: ALANINE AMINOTRANSFERASE 13 U/L (0-55); ALKALINE PHOSPHATASE 81 U/L (40-136); BILIRUBIN,TOTAL 0.7 MG/DL (0.1-1.0); CALCIUM 9.2 MG/DL (8.5-10.1); GLUCOSE 483 MG/DL (70-105); TOTAL PROTEIN 7.5 GM/DL (6.4-8.2)
[2020-06-17 14:23] LABS: ALBUMIN 3.8 GM/DL (3.2-4.5)
--- NOTE | 2020-06-17 14:25 | Diagnostic Imaging Report ---
INDICATION: Pain at site of great toe amputation. TECHNIQUE/COMPARISON: AP, oblique, and lateral views of the right foot were obtained. Comparison is made to the study of 03/10/2020. FINDINGS: There has been amputation of the great toe phalanges. There is now irregular lucency and probable pathologic fracture in the distal shaft of the 1st metatarsal. The distal articular surface remains smooth; however, there is surrounding swelling and dystrophic calcification. Otherwise, there has also been development of focal lucency within the distal aspect of the 2nd proximal phalanx. This is smooth and fairly well demarcated and could be post operative or related to previous trauma. Linear metallic foreign objects in the plantar aspect of the foot have not significantly changed position. There appears to be periosteal reaction surrounding the 5th proximal phalanx. IMPRESSION: Extensive swelling of the forefoot suggesting cellulitis with lytic change and probable pathologic fracture of the distal aspect of the 1st metatarsal indicating underlying osteomyelitis. Dystrophic calcification and possible periosteal reaction involving the 5th proximal phalanx may represent additional site of bone infection. There is also well demarcated lucency along the distal margin of the 2nd proximal phalanx which was not definitely appreciated on the previous study. This could be post surgical although clinical correlation is recommended. If there is significant inflammation to this region, the possibility of infection is not excluded. Dictated by: Dictated on workstation # [id number]
[2020-06-17] MEDS ORDERED: PIPERACILLIN SODIUM/TAZOBACTAM 4.5 GM in NS (IVPB) 100 ML IV ONE (14:30)
[2020-06-17] MEDS ORDERED: VANCOMYCIN INJECTION 1,000 MG in NS (IVPB) 250 ML IV ONE (14:45)
[2020-06-17] MEDS ORDERED: inSUlin ASPART (NovoLOG) 1 UNIT/0.01 ML (CHARGE PER UNIT) SC SCH (16:00)
[2020-06-17 17:09] VITALS: BP 141/78
[2020-06-17] MEDS: fentaNYL INJECTION 100 MCG/2 ML AMP IVP PRN ×2 (17:12→20:03)
[2020-06-17] MEDS ORDERED: VANCOMYCIN 1250 MG/NS 250 ML IVPB IV NR ×2 (17:30)
[2020-06-17] MEDS: NS IV 1000 ML 1,000 ML IV SCH (18:14)
[2020-06-17] MEDS: inSUlin ASPART (NovoLOG) 1 UNIT/0.01 ML (CHARGE PER UNIT) SC SCH ×2 (18:14→21:43)
[2020-06-17 19:43] VITALS: BP 130/71
[2020-06-17] MEDS ORDERED: ACETAMINOPHEN 500 MG TAB (TYLENOL) ONE (19:53)
[2020-06-17] MEDS ORDERED: IBUPROFEN 800 MG (MOTRIN) TAB PO ONE (19:58)
[2020-06-17] MEDS ORDERED: ACETAMINOPHEN 500 MG TAB (TYLENOL) PO PRN (20:00)
[2020-06-17] MEDS ORDERED: HYDROcodone/APAP 7.5 MG/325 MG (LORTAB, LORCET PLUS) TABLET PO PRN (20:00)
[2020-06-17] MEDS: PIPERACILLIN/TAZO 4.5 GM/NS 100 ML IV SCH ×2 (20:03)
[2020-06-17] MEDS: IBUPROFEN 800 MG (MOTRIN) TAB PO SCH (20:05)
--- NOTE | 2020-06-17 20:37 | CONSULTATION REPORT ---
DATE OF SERVICE: ATTENDING PROCESSING MGR: [place], [place]. ADMITTING PHYSICIAN: Dr. Burnett. HISTORY OF PRESENT ILLNESS: The patient is a 60-year-old male known to us. He has multiple medical problems including diabetes, hypertension, hypercholesterolemia as well as neuropathy. He also does have a history of noncompliance and does continue to smoke. He had developed an ulceration on the right foot and great toe and was seen by wound care; however, he had recurrent issues with progression of the wound and surrounding cellulitis. An x-ray was performed, which was consistent with osteomyelitis and he did have a significant amount of soft tissue swelling around the metacarpophalangeal joint. On 05/30/2020, he underwent a right great toe amputation. Before surgery, the patient stated that he could not offload pressure on the foot because he had to continue to hollow wood to heat his home and he did not have any help with this. It was explained to the patient that he needed to offload pressure to allow the foot to heal or else it would be an increased risk of reinfection. He was also scheduled to follow up with us; however, did not and stated that the cost of gas was too much and he [place] greater than [place] away. He presented to [facility] with right foot pain as well as redness and swelling. He was seen at the [facility] and was started on antibiotics; however, the redness and swelling worsened. An x-ray was performed, which did show osteolytic changes along the first distal metatarsal as well as periosteal reaction involving the proximal fifth phalanx and distal margin of the second phalanx, likely indicating osteomyelitis. Again, he continues to be noncompliant. PAST MEDICAL HISTORY: Hypertension, hypercholesterolemia, diabetes, gastroesophageal reflux disease, history of brain aneurysm, cataracts. PAST SURGICAL HISTORY: Appendectomy, cholecystectomy, amputation of the right great toe. ALLERGIES: No known drug allergies. MEDICATIONS: Atorvastatin 20 mg daily, empagliflozin 25 mg daily, hydrocodone p.r.n. SOCIAL HISTORY: Positive for smoke, negative alcohol. FAMILY HISTORY: Noncontributory. VITAL SIGNS: Temperature 38.3, blood pressure 130/71, pulse 90, respirations 22, pulse ox 93% on room air. REVIEW OF SYSTEMS: Well-nourished male, currently in no acute distress. He is not experiencing any shortness of breath or difficulty breathing. No chest pain, palpitations, diaphoresis. No nausea, vomiting. No diarrhea, constipation. No red blood per rectum, no dark tarry stools. No fever, chills. No recent inadvertent weight loss. All other review of systems negative. PHYSICAL EXAMINATION: CHEST: Few scattered wheezes bilaterally. HEART: Regular, no murmurs. EXTREMITIES: No calf edema, negative Homans sign. There is redness and erythema of the right forefoot encompassing the previous first toe resection wound as well as the second and fifth digits. HEENT: No scleral icterus. NECK: No cervical lymphadenopathy. ABDOMEN: Soft, nontender, nondistended. SKIN: Warm, dry. LABORATORY DATA: WBC 9.6, hemoglobin 14.8, hematocrit 46, platelets 188. Glucose 483. BUN 23, creatinine 0.88. ASSESSMENT AND PLAN: A 60-year-old male with diabetes, neuropathy, history of medical noncompliance with likely osteomyelitis of the first distal metatarsal and of the second and fifth phalanx. He has been admitted and placed on Zosyn as well as vancomycin as well as insulin sliding scale. We will continue to monitor his progress; however, again explained to the patient the difficulty in treating osteomyelitis and the recurrence rates of infection. We will also reiterate the importance of medical compliance with smoking cessation as well as offloading pressure on the foot or else the likelihood of reinfection and the development of more osteomyelitis and further amputations will be inevitable. On this admission, we will also see if he will want to proceed with medical compliance and also proceed with transmetatarsal amputation of the first metatarsal as well as amputation of the right second and fifth phalanx. Job ID: [id number] DocumentID: [id number] Dictated Date: 06/17/2020 20:02:02 Test Tech Date: 06/17/2020 20:37:06 Dictated By: LANA WADE MD
[2020-06-18 00:20] VITALS: BP 130/76
[2020-06-18] MEDS ORDERED: VANCOMYCIN 1,750 MG/NS 500 ML IVPB IV SCH ×2 (04:00)
[2020-06-18 04:25] VITALS: BP 131/76
[2020-06-18] MEDS: NS IV 1000 ML 1,000 ML IV SCH (04:33)
[2020-06-18] MEDS: inSUlin ASPART (NovoLOG) 1 UNIT/0.01 ML (CHARGE PER UNIT) SC SCH ×2 (06:23→11:20)
[2020-06-18 06:24] LABS: BASOPHILS % (AUTO) 1 % (0-10); EOSINOPHILS # (AUTO) 0.2 10^3/uL (0.0-0.3); EOSINOPHILS % (AUTO) 3 % (0-10); HEMATOCRIT 43 % (40-54); HEMOGLOBIN 13.9 g/dL (13.3-17.7); LYMPHOCYTES # (AUTO) 1.3 10^3/uL (1.0-4.0); LYMPHOCYTES % (AUTO) 20 % (12-44); MEAN CORPUSCULAR HEMOGLOBIN 28 pg (25-34); MEAN CORPUSCULAR HGB CONC 33 g/dL (32-36); MEAN CORPUSCULAR VOLUME 85 fL (80-99); MEAN PLATELET VOLUME 11.2 fL (9.0-12.2); MONOCYTES # (AUTO) 0.9 10^3/uL (0.0-1.0); MONOCYTES % (AUTO) 14 % (0-12); NEUTROPHILS # (AUTO) 4.1 10^3/uL (1.8-7.8); NEUTROPHILS % (AUTO) 63 % (42-75); PLATELET COUNT 173 10^3/uL (130-400); WHITE BLOOD COUNT 6.5 10^3/uL (4.3-11.0)
[2020-06-18 06:35] LABS: ALBUMIN 3.3 GM/DL (3.2-4.5); CHLORIDE 104 MMOL/L (98-107); POTASSIUM 4.2 MMOL/L (3.6-5.0); SODIUM 137 MMOL/L (135-145)
[2020-06-18 06:37] LABS: CALCIUM 8.3 MG/DL (8.5-10.1)
[2020-06-18 06:38] LABS: GLUCOSE 224 MG/DL (70-105); TOTAL PROTEIN 6.5 GM/DL (6.4-8.2)
[2020-06-18 06:39] LABS: CARBON DIOXIDE 22 MMOL/L (21-32)
[2020-06-18 06:40] LABS: BILIRUBIN,TOTAL 0.7 MG/DL (0.1-1.0)
[2020-06-18 06:41] LABS: ALKALINE PHOSPHATASE 61 U/L (40-136); CREATININE SERUM 0.84 MG/DL (0.60-1.30); GFR ESTIMATED > 60
[2020-06-18 06:43] LABS: BUN/CREATININE RATIO 20
[2020-06-18 06:44] LABS: ALANINE AMINOTRANSFERASE 13 U/L (0-55)
[2020-06-18] MEDS: PIPERACILLIN/TAZO 4.5 GM/NS 100 ML IV SCH ×2 (06:45)
[2020-06-18] MEDS: IBUPROFEN 800 MG (MOTRIN) TAB PO SCH (06:45)
[2020-06-18 08:46] VITALS: BP 148/85
[2020-06-18] MEDS ORDERED: HYDROcodone/APAP 7.5 MG/325 MG (LORTAB, LORCET PLUS) TABLET PO ONE (10:48)
[2020-06-18] MEDS ORDERED: MULT-440 PO (11:04)
[2020-06-18] MEDS ORDERED: HYDR-3820 PO (11:04)
[2020-06-18] MEDS ORDERED: MELO15TA39 PO (11:04)
[2020-06-18] MEDS ORDERED: ASCO500T17 PO (11:04)
[2020-06-18] MEDS ORDERED: HYDROcodone/APAP 7.5 MG/325 MG (LORTAB, LORCET PLUS) TABLET PO PRN (12:00)
[2020-06-18] MEDS: fentaNYL INJECTION 100 MCG/2 ML AMP IVP PRN (12:27)
--- NOTE | 2020-06-18 12:58 | Progress Note-Pre Operative ---
Pre-Operative Progress Note H&P Reviewed The H&P was reviewed, patient examined and no changes noted. Date Seen by Provider: Jun 18, 2020 Time Seen by Provider: 14:00 Date H&P Reviewed: Jun 18, 2020 Time H&P Reviewed: 14:00 Pre-Operative Diagnosis: right first metatarsal head osteo and surrounding fascial necrosis LANA WADE MD Jun 18, 2020 12:58
--- NOTE | 2020-06-18 17:16 | History & Physical ---
HPI History of Present Illness: 60 yo M that recently had Right great toe amputation last week and came back due to increased pain and drainage. States that he never followed up with surgery after leaving the hospital. He is upset that the wound is not healing better. States that he has not been following a DM diet because he eats what is available at food pantry. Denies any fever but has had increased pain in his right foot. He has not changed the dressing but noticed that it is draining. Spoke with Dr Patterson this AM regarding the need for this patient to get further debridment due to purulent drainage and necrotic unhealing wound. Patient then states that he does not want to have any further surgery and wants to go home. Patient then left AMA Source: patient Exam Limitations: no limitations Date seen by provider: Jun 18, 2020 Time Seen by Provider: 10:25 Attending Physician Yoana Burnett MD [facility] [place] Consult Date of Admission Jun 17, 2020 at 16:30 Home Medications Home Medications Reviewed patient Home Medication Reconciliation performed by pharmacy medication reconciliations telegraph repeater technician and/or nursing. Patients Allergies have been reviewed. Allergies Coded Allergies: No Known Drug Allergies (Unverified , 05/30/20) [id number] Hx Patient Social History Living Status: Lives alone Drug of Choice: MARIJUANA Smoking Status: Former Smoker 2nd Hand Smoke Exposure: No Recent Hopitalizations: No Alcohol Use?: No Substance type: Marijuana Have you traveled recently?: No Immunizations Up To Date Tetanus Booster (TDap): Unknown Date of Pneumonia Vaccine: Feb 04, 2020 Date of Influenza Vaccine: Feb 04, 2020 Past Medical History Uncontrolled IDDM Right Great toe amputation Review of Systems ([facility]) Constitutional: no symptoms reported; No chills, No fever, No malaise, No weakness EENTM: no symptoms reported; No mouth pain, No nose congestion, No nose pain Respiratory: no symptoms reported; No cough, No dyspnea on exertion, No short of breath Cardiovascular: no symptoms reported; No chest pain, No edema, No palpitations Gastrointestinal: no symptoms reported; No abdominal pain, No constipation, No diarrhea, No loss of appetite, No nausea, No vomiting Genitourinary: no symptoms reported; No dysuria, No frequency, No hematuria Musculoskeletal: other (Right foot and leg pain) Skin: other (purulent open surgical wound) Psychiatric/Neurological: Numbness, Paresthesia, Tingling Reviewed Test Results Reviewed Test Results Lab Laboratory Tests Test 06/17/20 20:53 06/18/20 05:47 06/18/20 06:02 06/18/20 11:16 Range/Units Glucometer 254 H 178 H 263 H 70-110 MG/DL White Blood Count 6.5 4.3-11.0 10^3/uL Red Blood Count 5.00 4.30-5.52 10^6/uL Hemoglobin 13.9 13.3-17.7 g/dL Hematocrit 43 40-54 % Mean Corpuscular Volume 85 80-99 fL Mean Corpuscular Hemoglobin 28 25-34 pg Mean Corpuscular Hemoglobin Concent 33 32-36 g/dL Red Cell Distribution Width 12.9 10.0-14.5 % Platelet Count 173 130-400 10^3/uL Mean Platelet Volume 11.2 9.0-12.2 fL Immature Granulocyte % (Auto) 0 % Neutrophils (%) (Auto) 63 42-75 % Lymphocytes (%) (Auto) 20 12-44 % Monocytes (%) (Auto) 14 H 0-12 % Eosinophils (%) (Auto) 3 0-10 % Basophils (%) (Auto) 1 0-10 % Neutrophils # (Auto) 4.1 1.8-7.8 10^3/uL Lymphocytes # (Auto) 1.3 1.0-4.0 10^3/uL Monocytes # (Auto) 0.9 0.0-1.0 10^3/uL Eosinophils # (Auto) 0.2 0.0-0.3 10^3/uL Basophils # (Auto) 0.0 0.0-0.1 10^3/uL Immature Granulocyte # (Auto) 0.0 0.0-0.1 10^3/uL Sodium Level 137 135-145 MMOL/L Potassium Level 4.2 3.6-5.0 MMOL/L Chloride Level 104 98-107 MMOL/L Carbon Dioxide Level 22 21-32 MMOL/L Anion Gap 11 5-14 MMOL/L Blood Urea Nitrogen 17 7-18 MG/DL Creatinine 0.84 0.60-1.30 MG/DL Estimat Glomerular Filtration Rate > 60 BUN/Creatinine Ratio 20 Glucose Level 224 H 70-105 MG/DL Calcium Level 8.3 L 8.5-10.1 MG/DL Corrected Calcium 8.9 8.5-10.1 MG/DL Total Bilirubin 0.7 0.1-1.0 MG/DL Aspartate Amino Transf (AST/SGOT) 13 5-34 U/L Alanine Aminotransferase (ALT/SGPT) 13 0-55 U/L Alkaline Phosphatase 61 40-136 U/L Total Protein 6.5 6.4-8.2 GM/DL Albumin 3.3 3.2-4.5 GM/DL Physical Exam-([facility]) Physical Exam Vital Signs VS - Last 72 Hours, by Label 06/17/20 06/17/20 06/17/20 06/17/20 13:30 15:40 17:09 17:57 Temp 36.1 36.5 Pulse 87 80 79 Resp 16 18 19 B/P (MAP) 135/63 (87) 159/81 141/78 (99) Pulse Ox 97 96 94 94 O2 Delivery Room Air Room Air Room Air Room Air 06/17/20 06/17/20 06/17/20 06/17/20 19:43 20:05 20:35 21:00 Temp 38.3 38.3 35.6 Pulse 90 Resp 22 B/P (MAP) 130/71 (90) Pulse Ox 93 O2 Delivery Room Air Room Air 06/18/20 06/18/20 06/18/20 06/18/20 00:20 04:25 08:46 09:14 Temp 36.4 36.4 36.0 Pulse 70 67 87 Resp 20 18 14 B/P (MAP) 130/76 (94) 131/76 (94) 148/85 (106) Pulse Ox 95 95 96 O2 Delivery Room Air Room Air Room Air Room Air Capillary Refill : Greater Than 3 SecondsGreater Than 3 Seconds General Appearance: WD/WN, no apparent distress Neck: non-tender, full range of motion, supple Respiratory: chest non-tender, lungs clear, normal breath sounds, no respiratory distress, no accessory muscle use Cardiovascular: regular rate, rhythm, no edema, no murmur Gastrointestinal: normal bowel sounds, non tender, soft Extremities: normal range of motion, no pedal edema, no calf tenderness Neurologic/Psychiatric: sap portal consultant II-XII nml as tested, no motor/sensory deficits, alert, normal mood/affect, oriented x 3 Skin: other (open right foot wound with purulent drainage and foul smelling) Assessment/Plan Assessment/Plan Admission Status: Observation (1) Foot osteomyelitis, right Status: Acute Assessment & Plan: - Recent Right great toe amputation last week, lost to f.u, started on Vanc/Zosyn, General surgery consulted and recommended further debridement and patient declined and left AMA Qualifiers: Qualified Codes: M86.071 - Acute hematogenous osteomyelitis, right ankle and foot (2) Right great toe amputee (3) Uncontrolled diabetes mellitus Status: Chronic Qualifiers: Qualified Codes: E11.65 - Type 2 diabetes mellitus with hyperglycemia (4) 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
[2020-06-19] MEDS ORDERED: TROUGH ORDER-PHARMACY XX NR ×2 (03:00)
== END 2020-06-18 17:00 | disposition left against medical advice (07) | DRG 638 ==
LOC: EDUNIT# 13:22 → ER FS 13:25 → 4TH 16:30
PROVIDERS: ADMIT Family Medicine; ATTEND Family Medicine
DX: E11.69 Type 2 diabetes mellitus with other specified complication (principal); M86.8X7 Other osteomyelitis, ankle and foot; E11.65 Type 2 diabetes mellitus with hyperglycemia; Z91.14 Patient's other noncompliance with medication regimen; Z91.11 Patient's noncompliance with dietary regimen; E78.00 Pure hypercholesterolemia, unspecified; I10 Essential (primary) hypertension; K21.9 Gastro-esophageal reflux disease without esophagitis; Z90.49 Acquired absence of other specified parts of digestive tract; Z89.411 Acquired absence of right great toe; E11.42 Type 2 diabetes mellitus with diabetic polyneuropathy; Z87.891 Personal history of nicotine dependence; Z60.2 Problems related to living alone
CPT/HCPCS: 36415; 73630; 80053; 82962; 83605; 85025; 96361; 96365; 96375

== ENCOUNTER → 2021-09-09 | Outpatient (CLI) | payer MEDICARE, MEDICAID ==
[~2021-09-09] MED LIST changes: +ASCO500T17 PO; +HYDR-3820 PO; +MELO15TA39 PO; +MULT-440 PO; -SULF1TAB35 PO; +SULF1TAB38 PO
[2021-09-09 19:29] LABS: BASOPHILS # (AUTO) 0.1 10^3/uL (0.0-0.1); BASOPHILS % (AUTO) 1 % (0-10); EOSINOPHILS # (AUTO) 0.1 10^3/uL (0.0-0.3); EOSINOPHILS % (AUTO) 1 % (0-10); HEMATOCRIT 51 % (40-54); HEMOGLOBIN 14.9 g/dL (13.3-17.7); LYMPHOCYTES # (AUTO) 0.9 10^3/uL (1.0-4.0); LYMPHOCYTES % (AUTO) 12 % (12-44); MEAN CORPUSCULAR HEMOGLOBIN 21 pg (25-34); MEAN CORPUSCULAR HGB CONC 29 g/dL (32-36); MEAN CORPUSCULAR VOLUME 74 fL (80-99); MONOCYTES # (AUTO) 0.6 10^3/uL (0.0-1.0); MONOCYTES % (AUTO) 7 % (0-12); NEUTROPHILS # (AUTO) 6.2 10^3/uL (1.8-7.8); NEUTROPHILS % (AUTO) 79 % (42-75); PLATELET COUNT 208 10^3/uL (130-400); WHITE BLOOD COUNT 7.8 10^3/uL (4.3-11.0)
[2021-09-09 20:47] LABS: MEAN PLATELET VOLUME 11.8 fL (9.0-12.2)
[2021-09-09 20:48] LABS: SMEAR SCAN COMMENT SCAN FOR PLT'S OK
[2021-09-10 01:09] LABS: FREE T4 (FREE THYROXINE) 2.89 NG/DL (0.70-1.48)
== END ==
LOC: IHC 17:26
PROVIDERS: ATTEND Nurse Practitioner
DX: E78.2 Mixed hyperlipidemia (principal); E11.65 Type 2 diabetes mellitus with hyperglycemia; Z89.511 Acquired absence of right leg below knee
CPT/HCPCS: 80061; 82043; 84439; 84443; 85025

== ENCOUNTER 2022-05-17 10:55 | Emergency (ER) | payer MEDICARE, MEDICAID ==
[2022-05-17] MEDS ORDERED: ASPIRIN 81 MG CHEW (CHILDREN'S ASA) PO ONE (11:00)
--- NOTE | 2022-05-17 11:00 | ED Chest Pain ---
General Stated Complaint: CHEST PAIN History of Present Illness Date Seen by Provider: May 17, 2022 Time Seen by Provider: 11:00 Initial Comments 62-year-old male presents with left sided chest pain and left arm pain. Patient reports that he awoke with it this morning has been constant since he awoke. He does report he has had a cough for about a week. He was at wound care clinic and they sent him over here because he was complaining of chest pain. He denies any increasing shortness of breath. He denies any diaphoresis, nausea or vomiting. He reports nothing seems to make it better or worse. Allergies and Home Medications Allergies Coded Allergies: No Known Drug Allergies (Unverified , 05/30/20) Patient Home Medication List Home Medication List Reviewed: Yes Ascorbic Acid (Vitamin C) 500 Mg Tablet, 500 MG PO DAILY, (Reported) Entered as Reported by: LISA SCHULER on 06/18/20 110 Atorvastatin Calcium (Lipitor) 20 Mg Tablet, 20 MG PO DAILY, (Reported) Entered as Reported by: VICTOR HUGO WONG on 04/14/20 1220 Empagliflozin (Jardiance) 25 Mg Tablet, 25 MG PO DAILY, (Reported) Entered as Reported by: VICTOR HUGO WONG on 04/14/20 1220 Hydrocodone/Acetaminophen (Hydrocodone-Acetamin 10-325 mg) 1 Each Tablet, 1 EACH PO BID PRN for PAIN-MODERATE (5-7), (Reported) Entered as Reported by: LISA SCHULER on 06/18/20 110 Insuln Asp Prt/Insulin Aspart (Novolog Mix 70-30 Flexpen Syrn) Unknown Strength Solution, 40 UNITS SC BID WITH MEALS, (Reported) Entered as Reported by: VICTOR HUGO WONG on 04/14/20 1220 Meloxicam (Meloxicam) 15 Mg Tablet, 15 MG PO DAILY, (Reported) Entered as Reported by: LISA SCHULER on 06/18/20 110 Multivitamin W/Iron, Minerals (Centravites 50 Plus) 1 Each Tablet, 1 EACH PO DAILY, (Reported) Entered as Reported by: LISA SCHULER on 06/18/20 110 Review of Systems Review of Systems Constitutional: No chills, No fever Respiratory: Cough; Denies Wheezing Cardiovascular: Chest Pain; Denies Irregular Heart Rate, Denies Lightheadedness Gastrointestinal: Denies Abdominal Pain, Denies Diarrhea, Denies Nausea, Denies Vomiting Genitourinary: No Symptoms Reported Musculoskeletal: see HPI Skin: no symptoms reported Psychiatric/Neurological: No Symptoms Reported Endocrine: No Symptoms Reported Past Uuiqbai-Czjrjt-Vsdent Hx Immunizations Up To Date Tetanus Booster (TDap): Unknown Seasonal Allergies Seasonal Allergies: No Past Medical History Surgeries: Yes (right great toe amputation) Appendectomy, Gallbladder Respiratory: No Currently Using CPAP: No Currently Using BIPAP: No Cardiac: Yes High Cholesterol Neurological: Yes (brain anuerysm ) Stroke Sexually Transmitted Disease: No HIV/AIDS: No Genitourinary: No Gastrointestinal: No Gastroesophageal Reflux Musculoskeletal: No Endocrine: Yes Diabetes, Non-Insulin dep HEENT: Yes (RIGHT EYE) Cataract Loss of Vision: Denies Hearing Impairment: Denies Cancer: No Psychosocial: No Integumentary: No (pt presents with diabetic wound on right foot ) Recent Skin Changes Blood Disorders: No Adverse Reaction/Blood Tranf: No (N/A) Physical Exam Vital Signs Vital Signs - First Documented 05/17/22 10:55 Temp 35.8 Pulse 89 Resp 16 B/P (MAP) 126/84 (98) Pulse Ox 92 O2 Delivery Room Air Capillary Refill : Height, Weight, BMI Height: 5'11.00" Weight: 255lbs. oz. 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 Norm as Tested Progress/Results/Core Measures Results/Orders Lab Results Laboratory Tests Test 05/17/22 11:02 05/17/22 11:05 Range/Units White Blood Count 8.3 4.3-11.0 10^3/uL Red Blood Count 7.10 H 4.30-5.52 10^6/uL Hemoglobin 17.3 13.3-17.7 g/dL Hematocrit 55 H 40-54 % Mean Corpuscular Volume 78 L 80-99 fL Mean Corpuscular Hemoglobin 24 L 25-34 pg Mean Corpuscular Hemoglobin Concent 31 L 32-36 g/dL Red Cell Distribution Width 16.3 H 10.0-14.5 % Platelet Count 246 130-400 10^3/uL Mean Platelet Volume 10.9 9.0-12.2 fL Immature Granulocyte % (Auto) 0 % Neutrophils (%) (Auto) 66 42-75 % Lymphocytes (%) (Auto) 25 12-44 % Monocytes (%) (Auto) 7 0-12 % Eosinophils (%) (Auto) 2 0-10 % Basophils (%) (Auto) 1 0-10 % Neutrophils # (Auto) 5.5 1.8-7.8 10^3/uL Lymphocytes # (Auto) 2.0 1.0-4.0 10^3/uL Monocytes # (Auto) 0.6 0.0-1.0 10^3/uL Eosinophils # (Auto) 0.1 0.0-0.3 10^3/uL Basophils # (Auto) 0.1 0.0-0.1 10^3/uL Immature Granulocyte # (Auto) 0.0 0.0-0.1 10^3/uL Sodium Level 138 135-145 MMOL/L Potassium Level 4.4 3.6-5.0 MMOL/L Chloride Level 102 98-107 MMOL/L Carbon Dioxide Level 27 21-32 MMOL/L Anion Gap 9 5-14 MMOL/L Blood Urea Nitrogen 23 H 7-18 MG/DL Creatinine 0.99 0.60-1.30 MG/DL Estimat Glomerular Filtration Rate 86 BUN/Creatinine Ratio 23 Glucose Level 148 H 70-105 MG/DL Calcium Level 9.3 8.5-10.1 MG/DL Corrected Calcium 9.2 8.5-10.1 MG/DL Magnesium Level 2.0 1.6-2.4 MG/DL Total Bilirubin 0.6 0.1-1.0 MG/DL Aspartate Amino Transf (AST/SGOT) 16 5-34 U/L Alanine Aminotransferase (ALT/SGPT) 18 0-55 U/L Alkaline Phosphatase 80 40-136 U/L Troponin I < 0.30 <0.30 NG/ML C-Reactive Protein 0.37 <0.50 MG/DL Pro-B-Type Natriuretic Peptide < 5.0 <125.0 PG/ML Total Protein 7.3 6.4-8.2 GM/DL Albumin 4.1 3.2-4.5 GM/DL Influenza Type A (RT-PCR) Not Detected Not Detecte Influenza Type B (RT-PCR) Not Detected Not Detecte SARS-CoV-2 RNA (RT-PCR) Not Detected Not Detecte My Orders Orders - MARY ESPINOZA DO Cbc With Automated Diff (05/17/22 11:00) Comprehensive Metabolic Panel (05/17/22 11:00) Magnesium (05/17/22 11:00) Influenza A And B By Pcr (05/17/22 11:00) Crp Fs (05/17/22 11:00) Troponin I Fs (05/17/22 11:00) Covid 19 Inhouse Test (05/17/22 11:00) Chest Pa/Lat (2 View) (05/17/22 11:00) Aspirin Chewable Tablet (Baby Aspirin Ch (05/17/22 11:00) Probnp Fs (05/17/22 11:00) Ekg Tracing (05/17/22 12:06) Medications Given in ED Current Medications Medications Dose Ordered Sig/Quinn Route Start Time Stop Time Status Last Admin Dose Admin Aspirin 324 mg ONCE ONCE PO 05/17/22 11:00 05/17/22 11:03 DC 05/17/22 11:28 324 MG Vital Signs/I&O 05/17/22 10:55 Temp 35.8 Pulse 89 Resp 16 B/P (MAP) 126/84 (98) Pulse Ox 92 O2 Delivery Room Air Progress Progress Note : Progress Note Reviewed patient's EKG, chest x-ray and labs with no significant acute findings. I reviewed findings with him. Patient's pain is noncardiac in nature and has been going on for least 6 7 hours prior to arrival. Patient negative troponin with that amount of time is likely not cardiac. He does have a cough and likely has some underlying bronchitis probably chronic. He does admit to smoking weed frequently. Patient was offered further evaluation but declined at this time. He is stable and discharged Initial ECG Impression Date: May 17, 2022 Initial ECG Impression Time: 10:59 Initial ECG Rate: 87 Initial ECG Rhythm: Normal Sinus Initial ECG Intervals: QRS (80) Comment Normal sinus rhythm, pulmonary disease pattern, left axis deviation Diagnostic Imaging Diagonstic Imaging: Xray Plain Films/CT/US/NM/MRI: chest Comments Date of Exam:05/17/22 CHEST PA/LAT (2 VIEW) INDICATION: Chest pain. EXAMINATION: PA and lateral chest. FINDINGS: The heart size and pulmonary vascularity are normal. The lungs are clear. There are no effusions or pneumothoraces. IMPRESSION: No acute abnormalities in the chest. Reviewed: Reviewed by Me, Reviewed/Discussed Departure Impression Primary Impression: Bronchitis Additional Impression: Chest wall pain Disposition: HOME, SELF-CARE Condition: Stable Departure-Patient Inst. Referrals: [facility] (PCP/Family) Primary Care Physician Patient Instructions: Bronchitis, Adult ED, Chest Pain, Chest Pain That Is Not Caused by the Heart (DC) Add. Discharge Instructions: Please follow-up with your primary care provider for further evaluation if your symptoms do not continue to improve or worsen. Return to the ER with any concerns. MARY ESPINOZA DO May 17, 2022 11:00
--- NOTE | 2022-05-17 11:23 | Diagnostic Imaging Report ---
INDICATION: Chest pain. EXAMINATION: PA and lateral chest. FINDINGS: The heart size and pulmonary vascularity are normal. The lungs are clear. There are no effusions or pneumothoraces. IMPRESSION: No acute abnormalities in the chest. Dictated by: Dictated on workstation # [id number]
[2022-05-17 11:32] LABS: BASOPHILS # (AUTO) 0.1 10^3/uL (0.0-0.1); BASOPHILS % (AUTO) 1 % (0-10); EOSINOPHILS # (AUTO) 0.1 10^3/uL (0.0-0.3); EOSINOPHILS % (AUTO) 2 % (0-10); HEMATOCRIT 55 % (40-54); HEMOGLOBIN 17.3 g/dL (13.3-17.7); LYMPHOCYTES % (AUTO) 25 % (12-44); MEAN CORPUSCULAR HEMOGLOBIN 24 pg (25-34); MEAN CORPUSCULAR HGB CONC 31 g/dL (32-36); MEAN CORPUSCULAR VOLUME 78 fL (80-99); MEAN PLATELET VOLUME 10.9 fL (9.0-12.2); MONOCYTES # (AUTO) 0.6 10^3/uL (0.0-1.0); MONOCYTES % (AUTO) 7 % (0-12); NEUTROPHILS # (AUTO) 5.5 10^3/uL (1.8-7.8); NEUTROPHILS % (AUTO) 66 % (42-75); PLATELET COUNT 246 10^3/uL (130-400); WHITE BLOOD COUNT 8.3 10^3/uL (4.3-11.0)
[2022-05-17 12:08] LABS: ALANINE AMINOTRANSFERASE 18 U/L (0-55); ALKALINE PHOSPHATASE 80 U/L (40-136); BILIRUBIN,TOTAL 0.6 MG/DL (0.1-1.0); BUN/CREATININE RATIO 23; CALCIUM 9.3 MG/DL (8.5-10.1); CARBON DIOXIDE 27 MMOL/L (21-32); CHLORIDE 102 MMOL/L (98-107); CREATININE SERUM 0.99 MG/DL (0.60-1.30); GFR ESTIMATED 86; GLUCOSE 148 MG/DL (70-105); POTASSIUM 4.4 MMOL/L (3.6-5.0); SODIUM 138 MMOL/L (135-145)
[2022-05-17 12:09] LABS: ALBUMIN 4.1 GM/DL (3.2-4.5); TOTAL PROTEIN 7.3 GM/DL (6.4-8.2)
[2022-05-17 12:19] VITALS: BP 127/82
== END 2022-05-17 12:26 | disposition home or self-care (01) ==
LOC: EDUNIT# 10:55 → ER FS 10:58
DX: J40 Bronchitis, not specified as acute or chronic (principal); Z20.822 Contact with and (suspected) exposure to COVID-19
CPT/HCPCS: 36415; 71046; 80053; 83735; 83880; 84484; 85025; 86141; 87636; 93005

== ENCOUNTER 2022-09-10 16:25 | Inpatient (IN) | payer MEDICARE, MEDICAID ==
[~2022-09-10] VITALS: Ht 182.9 cm; Wt 111.7 kg
[2022-09-10] VITALS (8 sets, daily range): BP systolic 122–155; BP diastolic 68–92
[2022-09-10] MEDS ORDERED: ACETAMINOPHEN 325 MG TABLET PO STA (16:40)
[2022-09-10] MEDS ORDERED: NS IV 1000 ML 1,000 ML IV STA ×3 (16:40→17:52)
[2022-09-10 16:46] LABS: BASOPHILS # (AUTO) 0.1 10^3/uL (0.0-0.1); BASOPHILS % (AUTO) 0 % (0-10); EOSINOPHILS # (AUTO) 0.1 10^3/uL (0.0-0.3); EOSINOPHILS % (AUTO) 1 % (0-10); HEMATOCRIT 53 % (40-54); HEMOGLOBIN 14.9 g/dL (13.3-17.7); LYMPHOCYTES # (AUTO) 1.7 10^3/uL (1.0-4.0); LYMPHOCYTES % (AUTO) 13 % (12-44); MEAN CORPUSCULAR HEMOGLOBIN 22 pg (25-34); MEAN CORPUSCULAR HGB CONC 28 g/dL (32-36); MEAN CORPUSCULAR VOLUME 78 fL (80-99); MEAN PLATELET VOLUME 10.3 fL (9.0-12.2); MONOCYTES % (AUTO) 8 % (0-12); NEUTROPHILS # (AUTO) 9.6 10^3/uL (1.8-7.8); NEUTROPHILS % (AUTO) 77 % (42-75); PLATELET COUNT 178 10^3/uL (130-400); WHITE BLOOD COUNT 12.5 10^3/uL (4.3-11.0)
--- NOTE | 2022-09-10 16:49 | ED Fall/Injury ---
General Chief Complaint: Trauma-Non Activation Stated Complaint: FALL, L HIP/LEG PAIN Nursing Triage Note: see triage note Source: patient History of Present Illness Date Seen by Provider: September 10, 2022 Time Seen by Provider: 16:25 Initial Comments 62-year-old male presenting with complaints of left hip pain. He was trying to walk into [employer] and fell. He landed on his left hip and was complaining of pain. He had some nausea initially but states that has passed. He had been feeling dizzy and short of breath especially with exertion of the last day or 2. He also feels like there is bubbling in his ears like he is got wax buildup. He denies having a fever or chills. He has had an occasional coug h but denies having any productive sputum. Denies any pain or burning with urination, change in bowels, headache, change in vision. He has had increased urinary frequency especially at night. Occurred: just prior to arrival Severity: moderate Injuries/Pain Location: lower extremity (left hip pain) Context: lost balance Loss of Consciousness: no loss of consciousness Modifying Factors: Worse With Movement Associated Symptoms (Fall): No Abdominal Pain, No Chest Pain, No Confusion; Dizziness; No Headache, No Muscle Spasms, No Neck Pain, No Ringing in Ears, No Seizures, No Shortness of Air, No Slurred Speech; Trouble Walking (unsteady gait per EMS); No Vision Changes Allergies and Home Medications Allergies Coded Allergies: No Known Drug Allergies (Unverified , 05/30/20) Patient Home Medication List Home Medication List Reviewed: Yes Ascorbic Acid (Vitamin C) 500 Mg Tablet, 500 MG PO DAILY, (Reported) Entered as Reported by: LISA SCHULER on 06/18/20 1104 Atorvastatin Calcium (Lipitor) 20 Mg Tablet, 20 MG PO DAILY, (Reported) Entered as Reported by: VICTOR HUGO WONG on 04/14/20 1220 Empagliflozin (Jardiance) 25 Mg Tablet, 25 MG PO DAILY, (Reported) Entered as Reported by: VICTOR HUGO WONG on 04/14/20 1220 Hydrocodone/Acetaminophen (Hydrocodone-Acetamin 10-325 mg) 1 Each Tablet, 1 EACH PO BID PRN for PAIN-MODERATE (5-7), (Reported) Entered as Reported by: LISA SCHULER on 06/18/20 1104 Insuln Asp Prt/Insulin Aspart (Novolog Mix 70-30 Flexpen Syrn) Unknown Strength Solution, 40 UNITS SC BID WITH MEALS, (Reported) Entered as Reported by: VICTOR HUGO WONG on 04/14/20 1220 Meloxicam (Meloxicam) 15 Mg Tablet, 15 MG PO DAILY, (Reported) Entered as Reported by: LISA SCHULER on 06/18/20 1104 Multivitamin W/Iron, Minerals (Centravites 50 Plus) 1 Each Tablet, 1 EACH PO DAILY, (Reported) Entered as Reported by: LISA SCHULER on 06/18/20 1104 Review of Systems Review of Systems Constitutional: No chills; fever (denies fever at home but has temperature to 38.1 C here in ED) Eyes: Denies Blurred Vision, Denies Photophobia, Denies Vision Changes Ears, Nose, Mouth, Throat: see HPI; denies ear pain, denies ear discharge, denies nose pain, denies nose discharge Respiratory: no symptoms reported, see HPI Cardiovascular: No chest pain Gastrointestinal: No diarrhea; nausea; No vomiting Genitourinary: No dysuria; frequency Musculoskeletal: see HPI Skin: No change in color Psychiatric/Neurological: See HPI Past Hzwjkyq-Tjkhuw-Mybsgk Hx Patient Social History Tobacco Use?: No Substance use?: No Alcohol Use?: No Pt feels they are or have been: No Immunizations Up To Date Tetanus Booster (TDap): Unknown First/Initial COVID19 Vaccinat: UNK Second COVID19 Vaccination Mannie: UNK Third COVID19 Vaccination Date: UNK Seasonal Allergies Seasonal Allergies: No Past Medical History Surgery/Hospitalization HX: BKA RIGHT, HTN, high cholesterol Surgeries: Yes (right great toe amputation) Appendectomy, Gallbladder Respiratory: No Currently Using CPAP: No Currently Using BIPAP: No Cardiac: Yes High Cholesterol Neurological: Yes (brain anuerysm ) Stroke Sexually Transmitted Disease: No HIV/AIDS: No Genitourinary: No Gastrointestinal: No Gastroesophageal Reflux Musculoskeletal: No Endocrine: Yes Diabetes, Non-Insulin dep HEENT: Yes (RIGHT EYE) Cataract Loss of Vision: Denies Hearing Impairment: Denies Cancer: No Psychosocial: No Integumentary: No (pt presents with diabetic wound on right foot ) Recent Skin Changes Blood Disorders: No Adverse Reaction/Blood Tranf: No (N/A) Physical Exam Vital Signs Vital Signs - First Documented 09/10/22 16:30 Temp 38.1 Pulse 110 Resp 24 B/P (MAP) 121/60 (80) Pulse Ox 90 O2 Delivery Nasal Cannula O2 Flow Rate 5.00 Capillary Refill : Height, Weight, BMI Height: 5'11.00" Weight: 255lbs. oz. 115.757885vg; 34.88 BMI Method:Stated General Appearance: WD/WN, no apparent distress HEENT: PERRL/EOMI, normal ENT inspection, pharynx normal; No photophobia; other (Negative arango sign, negative raccoon sign, no CSF otorrhea, no CSF rhinorrhea. He does have bilateral cerumen buildup in external auditory canals.) Neck: non-tender, full range of motion, supple, normal inspection Cardiovascular: normal peripheral pulses, regular rate, rhythm Respiratory: chest non-tender, no respiratory distress, no accessory muscle use, decreased breath sounds Gastrointestinal: normal bowel sounds, non tender, soft, no pulsatile mass Extremities: normal range of motion, normal capillary refill Neurologic/Psychiatric: alert, oriented x 3 Skin: normal color, warm/dry Progress/Results/Core Measures Results/Orders Lab Results Laboratory Tests Test 09/10/22 16:30 09/10/22 17:12 09/10/22 17:57 Range/Units White Blood Count 12.5 H 4.3-11.0 10^3/uL Red Blood Count 6.74 H 4.30-5.52 10^6/uL Hemoglobin 14.9 13.3-17.7 g/dL Hematocrit 53 40-54 % Mean Corpuscular Volume 78 L 80-99 fL Mean Corpuscular Hemoglobin 22 L 25-34 pg Mean Corpuscular Hemoglobin Concent 28 L 32-36 g/dL Red Cell Distribution Width 18.7 H 10.0-14.5 % Platelet Count 178 130-400 10^3/uL Mean Platelet Volume 10.3 9.0-12.2 fL Immature Granulocyte % (Auto) 1 % Neutrophils (%) (Auto) 77 H 42-75 % Lymphocytes (%) (Auto) 13 12-44 % Monocytes (%) (Auto) 8 0-12 % Eosinophils (%) (Auto) 1 0-10 % Basophils (%) (Auto) 0 0-10 % Neutrophils # (Auto) 9.6 H 1.8-7.8 10^3/uL Lymphocytes # (Auto) 1.7 1.0-4.0 10^3/uL Monocytes # (Auto) 1.0 0.0-1.0 10^3/uL Eosinophils # (Auto) 0.1 0.0-0.3 10^3/uL Basophils # (Auto) 0.1 0.0-0.1 10^3/uL Immature Granulocyte # (Auto) 0.1 0.0-0.1 10^3/uL Sodium Level 139 135-145 MMOL/L Potassium Level 4.6 3.6-5.0 MMOL/L Chloride Level 101 98-107 MMOL/L Carbon Dioxide Level 29 21-32 MMOL/L Anion Gap 9 5-14 MMOL/L Blood Urea Nitrogen 15 7-18 MG/DL Creatinine 1.22 0.60-1.30 MG/DL Estimat Glomerular Filtration Rate 67 BUN/Creatinine Ratio 12 Glucose Level 213 H 70-105 MG/DL Lactic Acid Level 3.01 *H 0.50-2.00 MMOL/L Calcium Level 8.4 L 8.5-10.1 MG/DL Corrected Calcium 8.9 8.5-10.1 MG/DL Total Bilirubin 0.5 0.1-1.0 MG/DL Aspartate Amino Transf (AST/SGOT) 24 5-34 U/L Alanine Aminotransferase (ALT/SGPT) 15 0-55 U/L Alkaline Phosphatase 93 40-136 U/L C-Reactive Protein 2.55 H <0.50 MG/DL Total Protein 6.3 L 6.4-8.2 GM/DL Albumin 3.4 3.2-4.5 GM/DL Urine Color YELLOW Urine Clarity CLEAR Urine pH 6.0 5-9 Urine Specific Holliday 1.010 L 1.016-1.022 Urine Protein TRACE H NEGATIVE Urine Glucose (UA) 3+ H NEGATIVE Urine Ketones NEGATIVE NEGATIVE Urine Nitrite NEGATIVE NEGATIVE Urine Bilirubin NEGATIVE NEGATIVE Urine Urobilinogen 0.2 < = 1.0 MG/DL Urine Leukocyte Esterase NEGATIVE NEGATIVE Urine RBC (Auto) TRACE-I H NEGATIVE Urine RBC 5-10 H /HPF Urine WBC 0-2 /HPF Urine Squamous Epithelial Cells 10-25 H /HPF Urine Crystals NONE /LPF Urine Bacteria NEGATIVE /HPF Urine Casts PRESENT /LPF Urine Hyaline Casts 2-5 H /LPF Urine Coarse Granular Casts 0-2 H /LPF Urine Mucus NEGATIVE /LPF Urine Other SPERM PRESENT /HPF Urine Culture Indicated NO Blood Gas Puncture Site NA Blood Gas Patient Temperature 38.1 Arterial Blood pH 7.27 *L 7.37-7.43 Arterial Blood Partial Pressure CO2 76 *H 35-45 MMHG Arterial Blood Partial Pressure O2 57 L 79-93 MMHG Arterial Blood HCO3 35 H 23-27 MMOL/L Arterial Blood Total CO2 37.2 H 21.0-31.0 MMOL/L Arterial Blood Oxygen Saturation 85 L 94-100 % Arterial Blood Base Excess 5.6 H -2.5-2.5 MMOL/L Kian Test NA Blood Gas Ventilator Setting NO Blood Gas Inspired Oxygen 3 My Orders Orders - DORIE BAUMANN MD Acetaminophen Tablet/Caplet (Tylenol T (09/10/22 16:40) Cbc With Automated Diff (09/10/22 16:40) Comprehensive Metabolic Panel (09/10/22 16:40) Blood Culture (09/10/22 16:40) Ua Culture If Indicated (09/10/22 16:40) Chest 1 View Ap/Pa Only (09/10/22 16:40) Ed Iv/Invasive Line Start (09/10/22 16:40) Crp Fs (09/10/22 16:40) Lactic Acid Analyzer (09/10/22 16:40) O2 (09/10/22 16:40) Pelvis With Left Hip 2-3 View (09/10/22 16:40) Ns Iv 1000 Ml (Sodium Chloride 0.9%) (09/10/22 16:40) Ondansetron Injection (Zofran Injectio (09/10/22 16:59) Ns Iv 1000 Ml (Sodium Chloride 0.9%) (09/10/22 17:00) Ceftriaxone Iv/Im (Rocephin Iv/Im) (09/10/22 17:10) Ceftriaxone Pre-Mix (Rocephin Pre-Mix) (09/10/22 17:18) Azithromycin Injection (Zithromax Inject (09/10/22 17:35) Albuterol/Ipra Inhalation Soln (Duoneb I (09/10/22 17:37) Svn Small Volume Nebulizer (09/10/22 17:37) Arterial Blood Gas (09/10/22 17:42) Ed Admission (Communication) (09/10/22 17:42) Ns Iv 1000 Ml (Sodium Chloride 0.9%) (09/10/22 17:52) Rt Ed Bilevel Assessment (09/10/22 18:07) Bipap (Bilevel) Set Up (09/10/22 18:07) Vital Signs/I&O 09/10/22 09/10/22 09/10/22 09/10/22 16:30 16:30 16:49 18:00 Temp 38.1 38.1 Pulse 110 Resp 24 B/P (MAP) 121/60 (80) Pulse Ox 90 90 93 O2 Delivery Nasal Cannula Nasal Cannula Nasal Cannula O2 Flow Rate 5.00 5.00 3.00 09/10/22 09/10/22 09/10/22 18:38 19:00 19:01 Temp 36.5 Pulse 111 114 Resp 26 B/P (MAP) 132/81 Pulse Ox 93 O2 Delivery Nasal Cannula O2 Flow Rate 50.00 3.00 Progress Progress Note #1: Progress Note Potential diagnosis of UTI, pneumonia, upper respiratory infection, pyelonephritis, COPD, hip fracture, hip contusion. Placed on supplemental oxygen by nasal cannula to help raise his oxygen saturation is initially was 60%. His heart rate showed a sinus tachycardia 109 on cardiac telemetry monitoring. His blood pressure was okay at 119/56. He had a temperature of 38.1 Celsius. Obtain blood cultures, lactic acid, complete blood count, comprehensive metabolic profile, urinalysis. X-rays of the chest and left hip with pelvis. Administer normal saline 1 L IV fluid bolus for additional hydration as he was tachycardic and febrile. Administer a cetaminophen 650 mg p.o. x1 to help with pain as well as elevated temperature. Progress Note #2: Time: 17:08 Progress Note Lab called to say that the patient's lactic acid was elevated to 3.01. The rest of his blood work also showed his complete blood count had an elevated white blood cell count of 12.5 thousand with a slight left shift of 77% neutrophils. His hemoglobin was okay at 14.9 so he was not anemic. His comprehensive metabolic profile showed mild elevation of his BUN to 15 and creatinine to 1.22. His glucose was elevated at 213. His CRP was elevated to 2.55. He had no f ocal infiltrate on his 1 view chest x-ray on my personal interpretation but did have diffuse patchy appearance to lungs and his pelvis and left hip x-rays did not show any acute fractures or dislocation on my interpretation. With the elevated lactic acid will administer an additional liter of normal saline to make 3 L total. As his weight is 136.1 kg with a BMI of 40 this will be just under 30 mL/kg for his elevated lactic acid. He is not in septic shock or severe sepsis as his blood pressure is been running in the 120s systolic. He currently has a blood pressure of 126/71 with heart rate of 110. Oxygen saturation is now 97 to 98% on 4 L by nasal cannula. He did have some nausea and requested something more for his stomach so Zofran 4 mg IV was ordered. 1 g of Rocephin IV was ordered as well for his elevated lactic acid. I do not have a specific source of infection at this point but respiratory is certainly a possibility. His lactic acid may be elevated as well due to his hypoxia as he was only 60% on room air on arrival to the emergency department. Will cover for possible infection with the Rocephin while other test are pending. Progress Note #3: Time: 17:24 Progress Note Radiologist read the chest x-ray is showing diffuse patchy infiltrates bilaterally. They agreed that there is no acute fracture dislocation involving the pelvis and left hip. His urinalysis came back not showing infection. Specific gravity was 1.010 with 3+ glucose, 5-10 red blood cells, 10-25 epithelial cells, negative nitrites, leukocyte esterase, bacteria. Based off of this he appears to have pneumonia which would go along with his hypoxia and help explain his dizziness. Will broaden the antibiotic coverage with adding azithromycin for possible atypical pneumonia. Will check with patient about admission for sepsis with pneumonia and hypoxia. I also decreased his oxygen from 5 L/min through nasal cannula down to 3 L/min by nasal cannula and he was still maintaining a 93 to 96% oxygen saturation. We will continue to monitor. Ordered DuoNeb breathing treatment to try and help with his breathing as well. Progress Note #4: Time: 17:42 Progress Note Discussed with Dr. Lagunas, the on-call hospitalist for [facility]. I reviewed with her the patient's presentation as well as his initial oxygen saturation of 60% on room air. This quickly came up with supplemental oxygen. His labs showed elevated white blood cell count with lactic acidosis. His lactic acid was 3.01. He was given IV fluids at 30 mils per kilogram for sepsis. He showed bilateral pneumonia on his chest x-ray. There is no obvious fracture or dislocation on his pelvis or hip from his fall with hip pain complaint. He has been given Rocephin 1 g IV as well as Zithromax 500 mg IV for pneumonia. 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 He has been maintaining good blood pressure but has continued to be sinus tachycardia with heart rate around 100. Based on his body habitus this may be his baseline heart rate. However if it is due to his infection, fever, sepsis and the IV fluids and antibiotic should help. She accepted him for admission and did request that he be admitted to the ICU. She also requested an ABG to document his oxygen exchange. Progress Note #5: Time: 18:11 Progress Note Patient is awake, alert, talking coherently and maintaining oxygen saturation 93 to 96% on 3 L/min by nasal cannula. ABG did show he was acidotic with a pH of 7.27, PCO2 elevated to 76, PO2 at 57. He had no old ABGs for comparison. However based on being alert and conversing with us he likely has some chronic CO2 retention. Will order BiPAP at 15/5 with FiO2 of 50% and titrate to keep sats above 91%. Updated Dr. Lagunas about the findings and once I have a room assignment we will update the eICU staff about the patient as well. Patient is receiving a bed assignment of ICU 8 shortly after a order for BiPAP was placed. Patient was not tolerating having the BiPAP on here in the ED. He might require sedation or anxiolytic to be able to make him tolerate the BiPAP. I did call and update the attending through the eICU so that they are aware of the patient coming to the ICU from the ED. Diagnostic Imaging Diagonstic Imaging: Xray Plain Films/CT/US/NM/MRI: pelvis, hip Comments [facility] [place], [place] NAME: SHERMAN LARA Carmen [facility] REC#: [id number] PT STATUS: REG ER : 1960 PHYSICIAN: DORIE BAUMANN MD ADMIT DATE: 09/10/22/ER FS Signed Date of Exam:09/10/22 PELVIS WITH LEFT HIP 2-3 VIEW EXAMINATION: Radiograph of the pelvis and left hip TECHNIQUE: AP view of the pelvis and AP and crosstable view of the left hip obtained. HISTORY: fall, left hip pain COMPARISON: None available. FINDINGS: No acute osseous findings. Normal joint spaces. Image quality degradation due to patient body habitus. Visualized bowel gas is nondistended. IMPRESSION: No acute osseous findings. Dictated by: Dictated on workstation # [id number] Dict: 09/10/221716 Trans: 09/10/221717 [facility] [place] Interpreted by: LORI SCHNEIDER DO Electronically signed by: LORI SCHNEIDER DO 09/10/221717 Reviewed: Reviewed by Me (I reviewed the radiologist report at [id number]) Diagonstic Imaging: Xray Plain Films/CT/US/NM/MRI: chest Comments [facility] [place] NAME: SHERMAN LARA [facility] REC#: [id number] PT STATUS: REG ER : 1960 PHYSICIAN: DORIE BAUMANN MD ADMIT DATE: 09/10/22/ER FS Draft Date of Exam:09/10/22 CHEST 1 VIEW AP/PA ONLY EXAMINATION: Chest, one view. HISTORY: Short of breath, fever. COMPARISON: 05/17/2022. FINDINGS: There are mild interstitial and airspace opacities in both lungs. No pneumothorax. Left costophrenic angle is excluded from the [id number]. Heart size is normal. IMPRESSION: 1. Mild interstitial and airspace opacities suggestive of pneumonia. Dictated on workstation # [id number] Dict: 09/10/221715 Trans: 09/10/221718 Interpreted by: SHERMAN CARLOS MD Electronically signed by: Reviewed: Reviewed by Me (I reviewed the radiologist report at [id number]) Focused Exam Sepsis Stage: Sepsis Possible Source: Pulmonary Lactate Level 09/10/22 16:30: Lactic Acid Level 3.01*H Time of Focused Exam: 17:31 Respiratory: Chest Non Tender, No Accessory Muscle Use, No Respiratory Distress, Decreased Breath Sounds Cardiovascular: Normal Peripheral Pulses, Tachycardia Capillary Refill: Less Than 3 Seconds Peripheral Pulses: 2+ Carotid (R), 2+ Carotid (L), 2+ Radial Pulses (R), 2+ Radial Pulses (L) Skin: normal color, warm/dry Lactic Acid Level Laboratory Tests Test 09/10/22 16:30 Lactic Acid Level 3.01 MMOL/L (0.50-2.00) *H Within 3hrs of presentation: Admin fluids, Admin 30ml/kg IBW due to BMI>30, Admin ABX, Blood cultures prior to ABX's, Focus exam, Lactate level Critical Care Note Critical Care Total Time (minutes) 45 minutes Progress I spent at least 45 minutes in critical care time with the patient. Time excludes separately billable procedures. Time was spent obtaining history from patient and electronic medical record and EMS, ordering tests and reviewing results, ordering interventions and reviewing response, documentation in the chart, discussion with consultants, updating the patient. Patient was at risk of cardiopulmonary arrest and collapse with his hypoxia, sepsis, pneumonia. He required immediate intervention and monitoring with treatment to stabilize his condition. Departure Communication (Admissions) Time/Spoke to Admitting Phy: 17:[address] Lagunas, the on-call hospitalist for [facility]. I reviewed with her the patient's presentation as well as his initial oxygen saturation of 60% on room air. This quickly came up with supplemental oxygen. His labs showed elevated white blood cell count with lactic acidosis. His lactic acid was 3.01. He was given IV fluids at 30 mils per kilogram for sepsis. He showed bilateral pneumonia on his chest x-ray. There is no obvious fracture or dislocation on his pelvis or hip from his fall with hip pain complaint. He has been given Rocephin 1 g IV as well as Zithromax 500 mg IV for pneumonia. 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 He has been maintaining good blood pressure but has continued to be sinus tachycardia with heart rate around 100. Based on his body habitus this may be his baseline heart rate. However if it is due to his infection, fever, sepsis and the IV fluids and antibiotic should help. She accepted him for admission and did request that he be admitted to the ICU. She also requested an ABG to document his oxygen exchange. Impression Primary Impression: Community acquired pneumonia, bilateral Additional Impressions: Acute pain of left hip Fall Qualified Codes: W19.XXXA - Unspecified fall, initial encounter Fever in adult Hypoxia Sepsis Qualified Codes: A41.9 - Sepsis, unspecified organism Disposition: 30 STILL A PATIENT Condition: Critical Admissions Decision to Admit Reason: Admit from ER (General) Decision to Admit/Date: September 10, 2022 Time/Decision to Admit Time: 17:42 Departure-Patient Inst. Referrals: [facility] (PCP/Family) Primary Care Physician DORIE BAUMANN MD September 10, 2022 16:49
[2022-09-10] MEDS ORDERED: ONDANSETRON 4 MG/2 ML (SDV) Z0FRAN IVP STA (16:59)
[2022-09-10 17:04] LABS: ALBUMIN 3.4 GM/DL (3.2-4.5); BILIRUBIN,TOTAL 0.5 MG/DL (0.1-1.0); CALCIUM 8.4 MG/DL (8.5-10.1); CREATININE SERUM 1.22 MG/DL (0.60-1.30); POTASSIUM 4.6 MMOL/L (3.6-5.0); TOTAL PROTEIN 6.3 GM/DL (6.4-8.2)
[2022-09-10] MEDS ORDERED: cefTRIAXone IV/IM 1,000 MG in NS (IVPB) 50 ML IV STA (17:10)
[2022-09-10 17:16] LABS: BILIRUBIN,URINE NEGATIVE (NEGATIVE); CLARITY,URINE CLEAR; COLOR,URINE YELLOW; GLUCOSE, URINE (UA) 3+ (NEGATIVE); KETONES,URINE NEGATIVE (NEGATIVE); LEUKOCYTE ESTERASE ,URINE NEGATIVE (NEGATIVE); NITRITE,URINE NEGATIVE (NEGATIVE); PROTEIN,URINE TRACE (NEGATIVE)
[2022-09-10] MEDS ORDERED: cefTRIAXone PRE-MIX 50 ML IV ONE (17:18)
--- NOTE | 2022-09-10 17:19 | Diagnostic Imaging Report ---
EXAMINATION: Chest, one view. HISTORY: Short of breath, fever. COMPARISON: 05/17/2022. FINDINGS: There are mild interstitial and airspace opacities in both lungs. No pneumothorax. Left costophrenic angle is excluded from the [id number]. Heart size is normal. IMPRESSION: 1. Mild interstitial and airspace opacities suggestive of pneumonia. Dictated by: Dictated on workstation # [id number]
[2022-09-10 17:20] LABS: BACTERIA,URINE NEGATIVE /HPF; WBC,URINE 0-2 /HPF
--- NOTE | 2022-09-10 17:20 | Diagnostic Imaging Report ---
EXAMINATION: Radiograph of the pelvis and left hip TECHNIQUE: AP view of the pelvis and AP and crosstable view of the left hip obtained. HISTORY: fall, left hip pain COMPARISON: None available. FINDINGS: No acute osseous findings. Normal joint spaces. Image quality degradation due to patient body habitus. Visualized bowel gas is nondistended. IMPRESSION: No acute osseous findings. Dictated by: Dictated on workstation # [id number]
[2022-09-10 17:21] LABS: URINE OTHER SPERM PRESENT /HPF
[2022-09-10] MEDS ORDERED: AZITHROMYCIN INJECTION 500 MG in NS (IVPB) 250 ML IV STA (17:35)
[2022-09-10] MEDS ORDERED: RT-ALBUTEROL/IPRATROPIUM 3 ML (DUONEB) VIAL INH STA (17:37)
[2022-09-10 18:03] LABS: ABG PO2 57 MMHG (79-93)
[2022-09-10 18:04] LABS: ABG BASE EXCESS 5.6 MMOL/L (-2.5-2.5); ABG OXYGEN SATURATION 85 % (94-100); ABG TCO2 37.2 MMOL/L (21.0-31.0); INSPIRED O2 3; PATIENT TEMP 38.1; VENTILATOR NO
[2022-09-10 18:05] LABS: ABG PCO2 76 MMHG (35-45); ABG PH 7.27 (7.37-7.43)
[2022-09-10] MEDS ORDERED: ANTACID SUSP 30 ML UDC (MYLANTA) PO PRN (20:00)
[2022-09-10] MEDS ORDERED: NS IV 500 ML 500 ML IV PRN (20:00)
[2022-09-10] MEDS ORDERED: CALCIUM CARBONATE 500 MG (TUMS) TAB.CHEW PO PRN (20:00)
[2022-09-10] MEDS ORDERED: polyethylene glycoL POWDER 17 GM (MIRALAX) PACK PO PRN (20:00)
[2022-09-10] MEDS ORDERED: diphenhydrAMINE 25 MG TAB (BENADRYL) PO PRN (20:00)
[2022-09-10] MEDS ORDERED: BISACODYL 10 MG SUPP (DULCOLAX) PR PRN (20:00)
[2022-09-10] MEDS ORDERED: MILK OF MAGNESIA 400 MG/5 ML 30 ML UDC PO PRN (20:00)
[2022-09-10] MEDS ORDERED: diphenhydrAMINE 50 MG/ML INJ (BENADRYL) IVP PRN (20:00)
[2022-09-10] MEDS ORDERED: ONDANSETRON 4 MG/2 ML (SDV) Z0FRAN IV PRN (20:00)
[2022-09-10] MEDS ORDERED: LACTULOSE SYRUP 10GM/15ML (ENULOSE) 30ML UDC PO PRN (20:00)
[2022-09-10] MEDS ORDERED: ONDANSETRON 4 MG (ZOFRAN) ORAL DISSOLVE TAB PO PRN (20:00)
[2022-09-10] MEDS ORDERED: RT-ALBUTEROL/IPRATROPIUM 3 ML (DUONEB) VIAL INH PRN (20:30)
--- NOTE | 2022-09-10 20:35 | Tele-ICU Progress Note ---
Progress Note 62M with DM, osteomyelitis s/p toe amp, admitted with pneumonia, hypoxia. Initially presented with hip pain after fall. But also had been feeling dizzy and dyspeic with exertion for the past couple days. No fever or chills. Occassional nonproductive cough. On initial assessment, Chest XR with diffuse alveolar infiltrates. Started on Rocephin and azithro. He was oxygenating well on 5-6L, but given initial severe hypoxia he was transferred to ICU for close monitoring. - pneumonia: Given rocephin and azithro in ED. Has been changed to cefepime and azithro on transfer to ICU. Cultures pending. - hypercapnia: Appears to be acute on chronic CO2 retention. Repeat ABG pending. Reportedly did not tolerate BiPap at [place]. If acute component remains present on repeat ABG will give trial of BiPap with precedex. - hypoxia: possibly secondary to pneumonia. Likely has underling COPD. But given severity of hypoxia, witll check CTA to exclude PE. - hyperglycemia: insulin sliding scale - hip pain: XR negative for fracture or dislocation. Patient assessed via real time audiovisual communication system CCT 12 min Focused Exam Lactate Level 09/10/22 16:30: Lactic Acid Level 3.01*H Height, Weight, BMI Height: 5'11.00" Weight: 255lbs. oz. 115.321075yd; 40.00 BMI Method:Stated Time of Focused Exam: 17:31 ANIKET COHEN MD September 10, 2022 20:35
[2022-09-10] MEDS ORDERED: NS 100 ML (IVPB) BAG IV ONE (21:15)
[2022-09-10] MEDS ORDERED: HOLD METFORMIN - RECEIVED CONTRAST 20 ML VIAL IV SCH (21:15)
[2022-09-10] MEDS ORDERED: IOHEXOL 350 MG/ML 100 ML (OMNIPAQUE 350) VIAL IV ONE (21:15)
--- NOTE | 2022-09-10 21:22 | Diagnostic Imaging Report ---
TECHNIQUE: CTA of the chest was performed. 3D reformats were obtained. Dose reduction techniques were utilized. REASON FOR EXAM: Hypoxia. Shortness of breath. COMPARISON: Chest radiograph performed earlier the same date. FINDINGS: This helical CT pulmonary angiogram is suboptimal. No central pulmonary embolus is seen. The heart is prominent. There is no pericardial effusion. There is no axillary, mediastinal or hilar adenopathy. Patchy bibasilar opacities are seen. No focal mass. No central endobronchial obstructing lesion. No pleural effusion or pneumothorax. Osseous structures appear normal. There is hepatosplenomegaly with hepatic steatosis. IMPRESSION: 1. Suboptimal CT pulmonary angiogram. No central pulmonary embolus. 2. Patchy opacities in the lung bases which may represent infection and/or atelectasis. 3. Cardiomegaly. 4. Hepatosplenomegaly with hepatic steatosis. Dictated by: Dictated on workstation # [id number]
[2022-09-10] MEDS: DOCUSATE SODIUM 100 MG (COLACE) CAP PO SCH (21:57)
[2022-09-10] MEDS: SENNOSIDES 8.6 MG (SENOKOT) TAB PO SCH (21:57)
[2022-09-10] MEDS: ENOXAPARIN 40 MG/0.4 ML (LOVENOX) SYR SC SCH (21:57)
[2022-09-10] MEDS: NS IV 1000 ML 1,000 ML IV SCH (21:58)
[2022-09-10] MEDS: RT-ALBUTEROL/IPRATROPIUM 3 ML (DUONEB) VIAL INH SCH (22:11)
[2022-09-10] MEDS: inSUlin ASPART (NovoLOG) 1 UNIT/0.01 ML (CHARGE PER UNIT) SC SCH (22:15)
[2022-09-11] MEDS: CEFEPIME INJECTION 1,000 MG in NS (IVPB) 50 ML IV SCH ×5 (00:08→23:58)
[2022-09-11 00:21] VITALS: BP 152/80
[2022-09-11] MEDS: ACETAMINOPHEN 325 MG TABLET PO PRN (01:00)
[2022-09-11] MEDS: RT-ALBUTEROL/IPRATROPIUM 3 ML (DUONEB) VIAL INH SCH ×6 (02:54→22:07)
[2022-09-11 02:56] LABS: ABG BASE EXCESS 5.7 MMOL/L (-2.5-2.5); ABG OXYGEN SATURATION 91 % (94-100); ABG PO2 75 MMHG (79-93); ABG TCO2 35.4 MMOL/L (21.0-31.0); ALLENS TEST YES-POS; INSPIRED O2 6L; VENTILATOR NO
[2022-09-11 02:57] LABS: ABG PH 7.23 (7.37-7.43); PATIENT TEMP 36.8
[2022-09-11 02:58] LABS: ABG PCO2 81 MMHG (35-45)
[2022-09-11] MEDS ORDERED: DexMEDEtomidine 250 ML DRIP 250 ML IV ONE (03:08)
[2022-09-11] MEDS: DexMEDEtomidine 250 ML DRIP 250 ML IV SCH ×3 (03:17→22:53)
[2022-09-11] MEDS: LORazepam INJ 2 MG/ML (ATIVAN) VIAL IVP PRN ×2 (03:29→14:13)
[2022-09-11 04:50] LABS: BASOPHILS % (AUTO) 0 % (0-10); EOSINOPHILS # (AUTO) 0.1 10^3/uL (0.0-0.3); EOSINOPHILS % (AUTO) 1 % (0-10); HEMATOCRIT 50 % (40-54); HEMOGLOBIN 14.1 g/dL (13.3-17.7); LYMPHOCYTES # (AUTO) 1.2 10^3/uL (1.0-4.0); LYMPHOCYTES % (AUTO) 11 % (12-44); MEAN CORPUSCULAR HEMOGLOBIN 22 pg (25-34); MEAN CORPUSCULAR HGB CONC 28 g/dL (32-36); MEAN CORPUSCULAR VOLUME 80 fL (80-99); MEAN PLATELET VOLUME 10.7 fL (9.0-12.2); MONOCYTES % (AUTO) 9 % (0-12); NEUTROPHILS # (AUTO) 8.5 10^3/uL (1.8-7.8); NEUTROPHILS % (AUTO) 78 % (42-75); PLATELET COUNT 152 10^3/uL (130-400); WHITE BLOOD COUNT 10.9 10^3/uL (4.3-11.0)
[2022-09-11 05:08] LABS: ALBUMIN 3.3 GM/DL (3.2-4.5); POTASSIUM 4.6 MMOL/L (3.6-5.0)
[2022-09-11 05:09] LABS: CALCIUM 8.2 MG/DL (8.5-10.1)
[2022-09-11 05:11] LABS: TOTAL PROTEIN 6.2 GM/DL (6.4-8.2)
[2022-09-11 05:12] LABS: BILIRUBIN,TOTAL 0.5 MG/DL (0.1-1.0)
[2022-09-11 05:14] LABS: CREATININE SERUM 0.98 MG/DL (0.60-1.30); PHOSPHORUS 3.3 MG/DL (2.3-4.7)
[2022-09-11 05:17] LABS: MAGNESIUM 1.9 MG/DL (1.6-2.4)
[2022-09-11] MEDS: POTASSIUM CL 10MEQ/50ML IVPB 50 ML IV SCH (05:26)
[2022-09-11] MEDS: NS IV 1000 ML 1,000 ML IV SCH ×3 (05:53→15:38)
--- NOTE | 2022-09-11 06:03 | History & Physical-Hospitalist ---
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 Currently he is on Precedex and tolerating biPAP well but his ABG still appear acidotic. IV abx maintained. Presumed TAMAR. Date Seen 09/11/22 Time Seen by a Provider: 09:00 Attending Physician [facility] PCP Admitting Physician: Delisa Lagunas DO Attending Physician: Delisa Lagunas DO Referring Physician Date of Admission September 10, 2022 at 19:35 Home Medications & Allergies Home Medications Reviewed patient Home Medication Reconciliation performed by pharmacy medication reconciliations set up mold technician and/or nursing. Patients Allergies have been reviewed. Allergies Allergies Coded Allergies No Known Drug Allergies (Unverified05/30/20) Past Emxyifo-Pkovsb-Nandny Hx Patient Social History Marrital Status: single Employed/Student: unemployed Tobacco Use?: No Smoking Status: Unknown if Ever Smoked Substance use?: No Alcohol Use?: No Pt feels they are or have been: No Immunizations Up To Date Date of Influenza Vaccine: Feb 04, 2020 First/Initial COVID19 Vaccinat: UNK Second COVID19 Vaccination Mannie: UNK Tetanus Booster (TDap): Less Than 5 Years Hepatitis A: No Hepatitis B: No Date of Pneumonia Vaccine: Feb 04, 2020 Seasonal Allergies Seasonal Allergies: No Current Status Advance Directives: No Communicates: Verbally Primary Language: Albanian Preferred Spoken Language: Albanian Past Medical History Surgeries: Appendectomy, Gallbladder COPD Currently Using CPAP: No Currently Using BIPAP: No High Cholesterol Stroke Sexually Transmitted Disease: No HIV/AIDS: No Gastroesophageal Reflux Diabetes, Non-Insulin dep Cataract Loss of Vision: Denies Hearing Impairment: Denies Recent Skin Changes Blood Disorders: No Adverse Reaction/Blood Tranf: No (N/A) Uncontrolled IDDM Right Great toe amputation Review of Systems ROS-Unable to Obtain: on biPAP Constitutional: see HPI Physical Exam Physical Exam Vital Signs Vital Signs - First Documented 09/10/22 16:30 Temp 38.1 Pulse 110 Resp 24 B/P (MAP) 121/60 (80) Pulse Ox 90 O2 Delivery Nasal Cannula O2 Flow Rate 5.00 Capillary Refill : Less Than 3 Seconds Height, Weight, BMI Height: 5'11.00" Weight: 255lbs. oz. 115.735490hd; 40.00 BMI Method:Stated General Appearance: Anxious, Chronically ill, Obese Respiratory: No Accessory Muscle Use, No Respiratory Distress, Decreased Breath Sounds Neurologic/Psychiatric: Other (drowsy) Results Results/Procedures Labs Laboratory Tests 09/10/22 16:30 09/11/22 04:38 Patient resulted labs reviewed. Assessment/Plan Admission Diagnosis Assessment: Acute on chronic respiratory failure Presumed TAMAR? Bilateral PNA DM HTN TERENCE h/o right BKA Plan: IV abx O2 Nebs Monitor closely Intubation risk Admission Status: Inpatient Order (span 2 midnights) Reason for Inpatient Admission: resp failure Diagnosis/Problems Diagnosis/Problems (1) Acute on chronic respiratory failure with hypoxia and hypercapnia (2) Pneumonia of both lower lobes (3) Sepsis Status: Acute Qualifiers: Sepsis type: sepsis due to unspecified organism Sepsis acute organ dysfunction status: without acute organ dysfunction Qualified Codes: A41.9 - Sepsis, unspecified organism (4) Uncontrolled diabetes mellitus Status: Chronic DELISA LAGUNAS DO September 11, 2022 06:03
[2022-09-11] MEDS: KCL 20 MEQ TAB (K-DUR) PO SCH (06:13)
[2022-09-11] MEDS: MAGNESIUM 1 GM/100 ML IVPB 100 ML IV SCH (06:21)
[2022-09-11] MEDS: inSUlin ASPART (NovoLOG) 1 UNIT/0.01 ML (CHARGE PER UNIT) SC SCH ×4 (06:21→21:29)
[2022-09-11 06:31] VITALS: BP 92/68
--- NOTE | 2022-09-11 08:40 | Diagnostic Imaging Report ---
HISTORY: Dyspnea TECHNIQUE: Frontal view of the chest. COMPARISON: 09/10/2022 FINDINGS: Lung volumes are low. There are mildly increased interstitial and airspace opacities in the lungs bilaterally. There is no pleural effusion or pneumothorax. The cardiac silhouette is mildly prominent but stable in size. IMPRESSION: 1. Mildly increased interstitial and airspace opacities bilaterally, may be accentuated by the low lung volumes. This may be due to edema or infection. Dictated by: Dictated on workstation # [id number]
--- NOTE | 2022-09-11 08:42 | Tele-ICU Progress Note ---
Subjective Date Seen by a Provider: September 11, 2022 Subjective/Events-last exam This virtual visit was conducted using real time audio/video. Thank you for asking us to see this patient for respiratory insufficiency due to AECOPD, B pna. Also fall with hip pain. PE: VSS. O2 sat 96% on BiPAP 15/5, 55%. HEENT: No obvious masses, adenopathy or JVD. Chest: clear to auscultation. diminished. CV: RRR S1 S2 No murmur or added sounds. Abd: Non-tender. Bowel sounds Y. : Unremarkable. Lopez N[employer]/psychiatric: Grossly intact. No obvious focal findings. Extremities: No edema. Capillary refill < 3 seconds. Skin: unremarkable. Results: Elevated BG 154. AB.23/81/75 on 6 LPM. CXR: Poor quality, B interstit. infilts.. Available chart/ vitals / labs / images reviewed. Video assessment done using teleICU camera, rest of exam as per RN. A/P: Respiratory insufficiency: Continue present management with BiPAP, Duonebs, Prec. Will recheck ABG. Monitor for increasing oxygenation needs and/or need for intubation. Critical Care: critically ill patient. Cont.abx,SSI, Nara. Discussed with RN Desirae. Asked RN to reach out to eICU if any questions or concerns later. Time spent with patient/coordination of care with other health professionals (mins): 30 Sepsis Event Evaluation Height, Weight, BMI Height: 5'11.00" Weight: 255lbs. oz. 115.946273dg; 40.68 BMI Method:Stated Focused Exam Lactate Level 09/10/22 16:30: Lactic Acid Level 3.01*H 09/10/22 20:39: Lactic Acid Level 0.83 Time of Focused Exam: 17:31 Exam Exam Patient acknowledged, consented, and participated in this virtual visit which was conducted using real time audio/video Vital Signs Date Time Temp Pulse Resp B/P (MAP) Pulse Ox O2 Delivery O2 Flow Rate FiO2 09/11/22 08:00 70 19 96/66 (77) 94 NIV Bilevel 50.00 09/11/22 07:00 75 99/68 (78) 96 NIV Bilevel 50.00 09/11/22 07:00 75 09/11/22 06:31 74 26 97 50.00 5/13/23 06:00 85 11 101/67 (78) 96 NIV Bilevel 50.00 09/11/22 05:00 85 11 101/68 (79) 92 NIV Bilevel 50.00 09/11/22 04:00 92 13 122/67 (85) 96 NIV Bilevel 50.00 09/11/22 03:30 98 7 93 NIV Bilevel 50.00 09/11/22 03:17 99 134/60 09/11/22 03:00 101 18 134/60 (82) 09/11/22 02:54 94 Nasal Cannula 6.00 09/11/22 02:00 37.1 105 20 143/73 (98) 90 Nasal Cannula 6.00 09/11/22 01:00 104 17 152/81 (98) 91 Nasal Cannula 6.00 09/11/22 00:50 105 09/11/22 00:21 105 19 152/80 (96) 92 Nasal Cannula 6.00 09/11/22 00:15 105 19 91 Nasal Cannula 6.00 09/11/22 00:00 110 152/80 (104) 91 Nasal Cannula 4.00 09/10/22 23:00 108 20 155/82 (106) 95 Nasal Cannula 4.00 09/10/22 23:00 108 17 155/82 (107) 95 Nasal Cannula 6.00 09/10/22 22:45 109 12 141/84 (97) 92 Nasal Cannula 6.00 09/10/22 22:30 107 13 130/73 (89) 94 Nasal Cannula 6.00 09/10/22 22:11 93 Nasal Cannula 6.00 09/10/22 22:00 106 16 147/92 (109) 95 Nasal Cannula 6.00 09/10/22 22:00 106 17 147/92 (110) 95 Nasal Cannula 4.00 09/10/22 21:47 107 18 94 Nasal Cannula 6.00 09/10/22 21:45 108 10 132/70 (87) 94 Nasal Cannula 6.00 09/10/22 21:40 107 13 92 Nasal Cannula 4.00 09/10/22 21:32 108 15 94 Nasal Cannula 6.00 09/10/22 21:30 108 53 136/83 (102) Nasal Cannula 4.00 09/10/22 21:30 108 53 136/83 (102) Nasal Cannula 6.00 09/10/22 21:25 108 29 91 Nasal Cannula 4.00 09/10/22 21:17 106 17 92 Nasal Cannula 09/10/22 21:15 123/73 (88) 93 Nasal Cannula 4.00 09/10/22 21:10 107 36 124/68 (86) 93 Nasal Cannula 6.00 09/10/22 21:10 107 36 124/68 (86) 93 Nasal Cannula 4.00 09/10/22 20:40 109 22 93 Nasal Cannula 4.00 09/10/22 20:33 110 25 122/73 (85) 95 Nasal Cannula 6.00 09/10/22 20:33 94 Nasal Cannula 5.00 09/10/22 20:33 110 25 122/73 (85) 95 Nasal Cannula 4.00 09/10/22 20:32 21 95 09/10/22 20:25 111 22 92 09/10/22 20:17 108 16 93 09/10/22 20:15 90 09/10/22 20:10 109 27 92 09/10/22 20:02 109 34 92 09/10/22 19:58 90 Nasal Cannula 5.00 09/10/22 19:55 36.5 110 27 91 09/10/22 19:47 36.5 34 89 09/10/22 19:01 36.5 114 26 132/81 93 Nasal Cannula 3.00 09/10/22 19:00 111 09/10/22 18:38 50.00 09/10/22 18:00 93 Nasal Cannula 3.00 09/10/22 16:49 38.1 09/10/22 16:30 38.1 110 24 121/60 (80) 90 Nasal Cannula 5.00 09/10/22 16:30 90 Nasal Cannula 5.00 I & O 09/11/22 07:00 Intake Total 1223.25 ml Output Total 1020 ml Balance 203.25 ml Height & Weight Height: 5'11.00" Weight: 255lbs. oz. 115.339439ak; 40.68 BMI Method:Stated General Appearance: Chronically ill Respiratory: Chest Non Tender, No Accessory Muscle Use, No Respiratory Distress, Decreased Breath Sounds Cardiovascular: Normal Peripheral Pulses, Tachycardia Capillary Refill: Less Than 3 Seconds Peripheral Pulses: 2+ Carotid (R), 2+ Carotid (L); 1+ Dorsalis Pedis (R), 1+ Left Dors-Pedis (L) (See free text); 2+ Radial Pulses (R), 2+ Radial Pulses (L) Gastrointestinal: normal bowel sounds, non tender, soft, no pulsatile mass Results Lab Laboratory Tests 09/10/22 16:30 09/11/22 04:38 Assessment/Plan Assessment/Plan See free text. Critical Care: Critically Ill Patient MICHAEL CAO MD September 11, 2022 08:42
[2022-09-11] MEDS: SENNOSIDES 8.6 MG (SENOKOT) TAB PO SCH ×2 (08:50→21:11)
[2022-09-11] MEDS: DOCUSATE SODIUM 100 MG (COLACE) CAP PO SCH ×2 (08:50→21:11)
[2022-09-11 08:51] LABS: ABG BASE EXCESS 4.5 MMOL/L (-2.5-2.5); ABG OXYGEN SATURATION 92 % (94-100); ABG PO2 81 MMHG (79-93); ABG TCO2 33.2 MMOL/L (21.0-31.0)
[2022-09-11 08:53] LABS: ABG PCO2 71 MMHG (35-45); ABG PH 7.27 (7.37-7.43); ALLENS TEST YES-POS; INSPIRED O2 50%; VENTILATOR NO
[2022-09-11] MEDS: ENOXAPARIN 40 MG/0.4 ML (LOVENOX) SYR SC SCH ×2 (09:06→21:14)
[2022-09-11 09:11] VITALS: BP 94/70
[2022-09-11 10:22] LABS: BILIRUBIN,URINE NEGATIVE (NEGATIVE); CLARITY,URINE CLEAR; COLOR,URINE YELLOW; GLUCOSE, URINE (UA) 3+ (NEGATIVE); KETONES,URINE NEGATIVE (NEGATIVE); LEUKOCYTE ESTERASE ,URINE NEGATIVE (NEGATIVE); NITRITE,URINE NEGATIVE (NEGATIVE); PH,URINE 5.5 (5-9); PROTEIN,URINE NEGATIVE (NEGATIVE)
[2022-09-11 10:29] LABS: BACTERIA,URINE NEGATIVE /HPF; SQUAMOUS EPITHELIAL CELL,UR RARE /HPF
[2022-09-11 10:49] VITALS: BP_SYST 90; BP_SYST 901; BP_DIAS 68
[2022-09-11] MEDS: AZITHROMYCIN INJECTION 500 MG in NS (IVPB) 250 ML IV SCH (17:15)
[2022-09-11 18:55] VITALS: BP 162/104
[2022-09-11] MEDS: MELATONIN 3 MG TABLET PO PRN (21:16)
[2022-09-11 22:11] VITALS: BP 137/89
[2022-09-12] MEDS: NS IV 1000 ML 1,000 ML IV SCH ×3 (01:14→20:44)
[2022-09-12] MEDS: RT-ALBUTEROL/IPRATROPIUM 3 ML (DUONEB) VIAL INH SCH ×6 (02:05→22:29)
[2022-09-12 02:12] VITALS: BP 130/66
[2022-09-12] MEDS: CEFEPIME INJECTION 1,000 MG in NS (IVPB) 50 ML IV SCH ×4 (05:36→23:30)
[2022-09-12] MEDS: POTASSIUM CL 10MEQ/50ML IVPB 50 ML IV SCH (05:39)
[2022-09-12] MEDS: KCL 20 MEQ TAB (K-DUR) PO SCH (05:39)
[2022-09-12] MEDS: MAGNESIUM 1 GM/100 ML IVPB 100 ML IV SCH (05:39)
[2022-09-12] MEDS: inSUlin ASPART (NovoLOG) 1 UNIT/0.01 ML (CHARGE PER UNIT) SC SCH ×4 (06:07→20:44)
--- NOTE | 2022-09-12 07:31 | Progress Note - Hospitalist ---
Subjective HPI/CC On Admission Date Seen by Provider: September 12, 2022 Time Seen by Provider: 11:00 CC: Acute on chronic respiratory failure due to bilateral PNA HPI: This is a 62yoWM clinic patient of Dr Mcwilliams who has a h/o right BKA due to osteomyelitis in the past who presented to the [facility] ER with hypoxia and dyspnea and found to have bilateral PNA and hypercapneic requiring biPAP placement. Currently he is on Precedex and tolerating biPAP well but his ABG still appear acidotic. IV abx maintained. Presumed TAMAR. Subjective/Events-last exam Patient about the same Refuses biPAP ABG refused along with labs but he was talked into it after I asked him Reviewed meds Review of Systems General: Fatigue, Malaise Focused Exam Lactate Level 09/10/22 16:30: Lactic Acid Level 3.01*H 09/10/22 20:39: Lactic Acid Level 0.83 Time of Focused Exam: 17:31 Objective Exam Vital Signs Vital Signs Date Time Temp Pulse Resp B/P (MAP) Pulse Ox O2 Delivery O2 Flow Rate FiO2 09/12/22 15:06 98 Nasal Cannula 6.00 09/12/22 15:00 85 14 119/69 (82) 09/12/22 11:28 36.0 09/12/22 04:19 35 Capillary Refill : Less Than 3 Seconds General Appearance: No Apparent Distress, WD/WN, Chronically ill, Obese Respiratory: No Accessory Muscle Use, No Respiratory Distress, Decreased Breath Sounds Cardiovascular: Regular Rate, Rhythm Neurologic/Psychiatric: Alert, Oriented x3, No Motor/Sensory Deficits, Normal Mood/Affect Results/Procedures Lab Patient resulted labs reviewed. Assessment/Plan Assessment and Plan Assess & Plan/Chief Complaint Assessment: Acute on chronic respiratory failure hypoxic and hypercapnea Presumed TAMAR? Bilateral PNA DM HTN TERENCE h/o right BKA Plan: IV abx O2 Nebs Monitor closely Intubation risk Critical Care Critically Ill Patient Diagnosis/Problems Diagnosis/Problems (1) Acute on chronic respiratory failure with hypoxia and hypercapnia (2) Pneumonia of both lower lobes (3) Sepsis Status: Acute Qualifiers: Sepsis type: sepsis due to unspecified organism Sepsis acute organ dysfu nction status: without acute organ dysfunction Qualified Codes: A41.9 - Sepsis, unspecified organism (4) Uncontrolled diabetes mellitus Status: Chronic STEPHANIE GALEANA DO September 12, 2022 07:31
[2022-09-12] MEDS: DexMEDEtomidine 250 ML DRIP 250 ML IV SCH (07:56)
[2022-09-12] MEDS: ENOXAPARIN 40 MG/0.4 ML (LOVENOX) SYR SC SCH ×2 (07:56→20:43)
[2022-09-12] MEDS: DOCUSATE SODIUM 100 MG (COLACE) CAP PO SCH ×2 (07:57→20:45)
[2022-09-12] MEDS: SENNOSIDES 8.6 MG (SENOKOT) TAB PO SCH ×2 (07:57→20:45)
--- NOTE | 2022-09-12 08:31 | Diagnostic Imaging Report ---
EXAMINATION: Chest 1 view HISTORY: Short of breath COMPARISON: 09/11/2022 FINDINGS: There is a worsening right-sided airspace opacity. No pleural effusion or pneumothorax. Heart is enlarged. IMPRESSION: 1. Worsening right-sided airspace opacity favored to represent edema given the rapid development. Dictated by: Dictated on workstation # [id number]
--- NOTE | 2022-09-12 09:08 | Tele-ICU Progress Note ---
Progress Note video rounds completed 62 y/o male admitted with bilateral PNA Currently on cefipime and azithromycin Overall improved PE: resting comfortably in bed Vitals and O2 sat are all normal IMP; Bilateral PNA PLAN: complete antibiotic Rx I am remotely monitoring this patient from another state. I am unable to do the bedside exam, and history/physical and pertinent information is taken from other notes in the computer and bedside staff. Time spent in review 20 minutes Focused Exam Lactate Level 09/10/22 16:30: Lactic Acid Level 3.01*H 09/10/22 20:39: Lactic Acid Level 0.83 Height, Weight, BMI Height: 5'11.00" Weight: 255lbs. oz. 115.634934pc; 37.54 BMI Method:Stated Time of Focused Exam: 17:31 Results Results/Procedures Labs Laboratory Tests 09/10/22 16:30 09/11/22 04:38 Patient resulted labs reviewed. Results Labs Labs Laboratory Tests 09/11/22 10:00: Urine Color YELLOW, Urine Clarity CLEAR, Urine pH 5.5, Urine Specific Colona 1.020, Urine Protein NEGATIVE, Urine Glucose (UA) 3+H, Urine Ketones NEGATIVE, Urine Nitrite NEGATIVE, Urine Bilirubin NEGATIVE, Urine Urobilinogen 0.2, Urine Leukocyte Esterase NEGATIVE, Urine RBC (Auto) NEGATIVE, Urine RBC NONE, Urine WBC NONE, Urine Squamous Epithelial Cells RARE, Urine Crystals NONE, Urine Bacteria NEGATIVE, Urine Casts NONE, Urine Mucus NEGATIVE, Urine Culture Indicated NO 09/11/22 10:33: Glucometer 144H 09/11/22 17:09: Glucometer 131H 09/11/22 21:28: Glucometer 136H 09/12/22 05:51: Glucometer 159H Microbiology 09/10/22 MRSA Screen - Final, Complete MRSA not isolated 09/10/22 Blood Culture - Preliminary, Resulted No growth BRENT GOLDSTEIN MD September 12, 2022 09:08
[2022-09-12 11:01] LABS: ABG BASE EXCESS -4.8 MMOL/L (-2.5-2.5); ABG OXYGEN SATURATION 93 % (94-100); ABG PCO2 49 MMHG (35-45); ABG PO2 75 MMHG (79-93)
[2022-09-12 11:05] LABS: ALLENS TEST YES-POS; INSPIRED O2 30%; VENTILATOR NO
[2022-09-12 11:12] LABS: ABG PH 7.25 (7.37-7.43)
[2022-09-12] MEDS: AZITHROMYCIN INJECTION 500 MG in NS (IVPB) 250 ML IV SCH (17:00)
[2022-09-12] MEDS: LORazepam 0.5 MG (ATIVAN) TABLET PO PRN (20:44)
[2022-09-12] MEDS: MELATONIN 3 MG TABLET PO PRN (20:45)
[2022-09-12 21:07] VITALS: BP 125/80
[2022-09-13] MEDS: DexMEDEtomidine 250 ML DRIP 250 ML IV SCH (00:14)
[2022-09-13] MEDS: RT-ALBUTEROL/IPRATROPIUM 3 ML (DUONEB) VIAL INH SCH ×4 (02:31→20:47)
[2022-09-13] MEDS: NS IV 1000 ML 1,000 ML IV SCH (05:10)
--- NOTE | 2022-09-13 05:23 | Progress Note - Hospitalist ---
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 Currently he is on Precedex and tolerating biPAP well but his ABG still appear acidotic. IV abx maintained. Presumed TAMAR. Subjective/Events-last exam Doing better Labs reviewed ABG noted On NC hi antony No biPAP Complaints of chronic pain Review of Systems General: Fatigue, Malaise Focused Exam Lactate Level Time of Focused Exam: 17:31 Objective Exam Vital Signs Vital Signs Date Time Temp Pulse Resp B/P (MAP) Pulse Ox O2 Delivery O2 Flow Rate FiO2 09/13/22 20:47 95 Nasal Cannula 4.00 09/13/22 10:12 37.0 96 09/13/22 09:30 16 167/77 (107) 09/12/22 04:19 35 Capillary Refill : Less Than 3 Seconds General Appearance: No Apparent Distress, WD/WN, Chronically ill, Obese Respiratory: Lungs Clear, Normal Breath Sounds Cardiovascular: Regular Rate, Rhythm Neurologic/Psychiatric: Alert, Oriented x3, Depressed Affect Results/Procedures Lab Laboratory Tests 09/13/22 05:37 Patient resulted labs reviewed. Assessment/Plan Assessment and Plan Assess & Plan/Chief Complaint Assessment: Acute on chronic respiratory failure hypoxic and hypercapnea Presumed TAMAR? Bilateral PNA DM HTN TERENCE h/o right BKA Plan: IV abx O2 Nebs Monitor closely Move to 4th floor Critical Care Critically Ill Patient Diagnosis/Problems Diagnosis/Problems (1) Acute on chronic respiratory failure with hypoxia and hypercapnia (2) Pneumonia of both lower lobes (3) Sepsis Status: Acute Qualifiers: Sepsis type: sepsis due to unspecified organism Sepsis acute organ dysfunction status: without acute organ dysfunction Qualified Codes: A41.9 - Sepsis, unspecified organism (4) Uncontrolled diabetes mellitus Status: Chronic STEPHANIE GALEANA DO September 13, 2022 05:23
[2022-09-13] MEDS: CEFEPIME INJECTION 1,000 MG in NS (IVPB) 50 ML IV SCH ×4 (05:30→23:11)
[2022-09-13] MEDS: inSUlin ASPART (NovoLOG) 1 UNIT/0.01 ML (CHARGE PER UNIT) SC SCH ×4 (05:46→20:39)
[2022-09-13 05:50] LABS: BASOPHILS % (AUTO) 0 % (0-10); EOSINOPHILS # (AUTO) 0.2 10^3/uL (0.0-0.3); EOSINOPHILS % (AUTO) 2 % (0-10); HEMATOCRIT 50 % (40-54); HEMOGLOBIN 14.7 g/dL (13.3-17.7); LYMPHOCYTES # (AUTO) 0.7 10^3/uL (1.0-4.0); LYMPHOCYTES % (AUTO) 10 % (12-44); MEAN CORPUSCULAR HEMOGLOBIN 23 pg (25-34); MEAN CORPUSCULAR HGB CONC 29 g/dL (32-36); MEAN CORPUSCULAR VOLUME 77 fL (80-99); MEAN PLATELET VOLUME 10.4 fL (9.0-12.2); MONOCYTES # (AUTO) 0.7 10^3/uL (0.0-1.0); MONOCYTES % (AUTO) 9 % (0-12); NEUTROPHILS # (AUTO) 5.8 10^3/uL (1.8-7.8); NEUTROPHILS % (AUTO) 78 % (42-75); PLATELET COUNT 147 10^3/uL (130-400); WHITE BLOOD COUNT 7.5 10^3/uL (4.3-11.0)
[2022-09-13 06:06] LABS: ALBUMIN 3.3 GM/DL (3.2-4.5); BILIRUBIN,TOTAL 0.9 MG/DL (0.1-1.0); CALCIUM 8.9 MG/DL (8.5-10.1); CREATININE SERUM 0.93 MG/DL (0.60-1.30); MAGNESIUM 1.7 MG/DL (1.6-2.4); PHOSPHORUS 2.1 MG/DL (2.3-4.7); POTASSIUM 4.4 MMOL/L (3.6-5.0); TOTAL PROTEIN 6.3 GM/DL (6.4-8.2)
[2022-09-13] MEDS: POTASSIUM CL 10MEQ/50ML IVPB 50 ML IV SCH (06:12)
[2022-09-13] MEDS: KCL 20 MEQ TAB (K-DUR) PO SCH (06:13)
[2022-09-13 06:24] LABS: ABG BASE EXCESS 0.2 MMOL/L (-2.5-2.5); ABG OXYGEN SATURATION 92 % (94-100); ABG PCO2 53 MMHG (35-45); ABG PO2 69 MMHG (79-93); ABG TCO2 27.6 MMOL/L (21.0-31.0)
[2022-09-13] MEDS: MAGNESIUM 1 GM/100 ML IVPB 100 ML IV SCH ×4 (06:24→08:29)
[2022-09-13 06:26] LABS: ABG PH 7.31 (7.37-7.43); INSPIRED O2 4L; PATIENT TEMP 36.2
[2022-09-13] MEDS: HYDROmorphone 2 MG/ML VIAL (DILAUDID) IV PRN ×2 (07:46→11:30)
--- NOTE | 2022-09-13 08:00 | Diagnostic Imaging Report ---
INDICATION: Dyspnea. Comparison is made with prior exam of 09/12/2022. FINDINGS: There is generalized cardiomegaly and mild central pulmonary venous congestion. The mediastinal configuration is unremarkable. There is no pleural effusion, pneumothorax, or pneumonia. The visualized osseous structures are unremarkable. IMPRESSION: Cardiomegaly and mild central pulmonary venous congestion. Dictated by: Dictated on workstation # [id number]
[2022-09-13] MEDS: DOCUSATE SODIUM 100 MG (COLACE) CAP PO SCH ×2 (08:29→19:45)
[2022-09-13] MEDS: ENOXAPARIN 40 MG/0.4 ML (LOVENOX) SYR SC SCH ×2 (08:29→19:45)
[2022-09-13] MEDS: SENNOSIDES 8.6 MG (SENOKOT) TAB PO SCH ×2 (08:29→19:45)
--- NOTE | 2022-09-13 09:27 | Tele-ICU Progress Note ---
Subjective Date Seen by a Provider: September 13, 2022 Time Seen by a Provider: 09:27 Subjective/Events-last exam (Tele-ICU Physician , Progress Note ) Service provided via interactive audio and video telecommunications E-CARE system to a patient admitted to ICU bed in [facility]. Patient is seen today due to persistent need of ICU care Available chart/ vitals / labs / Images reviewed Video assessment done using teleICU camera, rest of exam as per RN Discussed with RN Events overnight : Afebrile hemodynamically stable Respiratory - 4l I/O = neg Drips:ns 125 Pressors- no Hospital course: A/P (09/10) 62M Admitted for sepsis PNA/COPD. Recent great toe amputation. CTA chest NEG PE. (09/11) bipap and precedex. 09/13 , off precedex , on 4 L Acute hypoxic resp failure - possibly secondary to pneumonia and suspected COPD (CTA neg PE- stop IVF , IS - follow Acute hypercapneic resp failure - AECOPD? - cont nebs - poor tolerance BIPAP , but now improved PNA Right - CT Patchy opacities in the lung bases which may represent infection and/or atelectasis - cont abx - z amx and cefepime DM II - ISS Lines : periph , (Central Line Necessity Reviewed) Lopez: OG: Nutrition: po Analgesia: Anxiety/ delirium VTE Prophylaxis: areli Stress Ulcer Prophylaxis: ppi Plans in collaboration with bedside consultants and IM MDs. Discussed with RN to reach out if any questions or concerns Case and care daily discussed on multidisciplinary rounds ( RN, PharmD, Senior Analyst , Respiratory Therapy, plant care worker ) A total of 25 minutes of critical care time was devoted to this patient today, required to treat and/or prevent further deterioration of critical care con dition ( as above ) . I am remotely monitoring this patient from another state. I am unable to do the bedside exam, and history/physical and pertinent information is taken from other notes in the computer and bedside staff. Sepsis Event Evaluation Height, Weight, BMI Height: 5'11.00" Weight: 255lbs. oz. 115.319938rc; 37.54 BMI Method:Stated Focused Exam Lactate Level 09/10/22 16:30: Lactic Acid Level 3.01*H 09/10/22 20:39: Lactic Acid Level 0.83 Time of Focused Exam: 17:31 Exam Exam Patient acknowledged, consented, and participated in this virtual visit which was conducted using real time audio/video Vital Signs Date Time Temp Pulse Resp B/P (MAP) Pulse Ox O2 Delivery O2 Flow Rate FiO2 09/13/22 08:07 37.0 09/13/22 08:00 94 31 160/93 (115) 89 Nasal Cannula 4.00 09/13/22 07:17 87 09/13/22 07:00 86 153/81 (105) 90 Nasal Cannula 4.00 09/13/22 06:00 84 20 151/84 (104) 93 09/13/22 05:00 80 18 148/82 (106) 91 09/13/22 04:08 High Flow N/C 4.00 09/13/22 04:00 36.2 79 18 157/85 (121) 93 Nasal Cannula 4.00 09/13/22 03:00 78 20 149/83 (110) 94 09/13/22 02:00 80 20 137/85 (97) 89 Nasal Cannula 4.00 09/13/22 01:00 81 09/13/22 01:00 80 20 144/80 (98) 96 09/13/22 00:00 36.1 81 18 134/76 (98) 96 09/12/22 23:54 High Flow N/C 6.00 09/12/22 23:00 81 16 137/76 (96) 97 High Flow N/C 6.00 09/12/22 22:29 97 Nasal Cannula 5.00 09/12/22 22:00 82 16 124/84 (99) 97 High Flow N/C 6.00 09/12/22 21:07 87 20 95 35.00 09/12/22 21:00 90 20 135/76 (95) 95 NIV Bilevel 35.00 09/12/22 20:00 89 20 125/80 (97) 94 09/12/22 19:30 37.6 90 19 115/70 (86) 95 High Flow N/C 6.00 09/12/22 19:30 High Flow N/C 6.00 09/12/22 19:07 94 Nasal Cannula 5.00 09/12/22 19:00 93 24 112/75 (88) 92 09/12/22 19:00 92 09/12/22 18:00 93 18 126/74 (89) 96 High Flow N/C 6.00 09/12/22 17:00 96 20 133/82 (105) 97 High Flow N/C 6.00 09/12/22 16:00 92 High Flow N/C 6.00 09/12/22 16:00 100 18 141/84 (103) 95 High Flow N/C 6.00 09/12/22 15:42 35.8 09/12/22 15:06 98 Nasal Cannula 6.00 09/12/22 15:00 85 14 119/69 (82) 100 High Flow N/C 6.00 09/12/22 14:00 89 112/68 (83) 95 High Flow N/C 6.00 09/12/22 13:00 89 111/63 (78) 93 High Flow N/C 6.00 09/12/22 12:41 93 09/12/22 12:00 92 116/63 (78) 91 High Flow N/C 6.00 09/12/22 11:28 36.0 09/12/22 11:27 93 High Flow N/C 6.00 09/12/22 11:00 92 20 110/62 (77) High Flow N/C 6.00 09/12/22 10:44 95 Nasal Cannula 6.00 09/12/22 10:00 84 24 92/56 (71) 96 High Flow N/C 6.00 I & O 09/13/22 07:00 Intake Total 4500 ml Output Total 6650 ml Balance -2150 ml Height & Weight Height: 5'11.00" Weight: 255lbs. oz. 115.117694ze; 37.54 BMI Method:Stated General Appearance: No Apparent Distress, WD/WN, Chronically ill, Obese Respiratory: No Accessory Muscle Use, No Respiratory Distress, Decreased Breath Sounds Cardiovascular: Regular Rate, Rhythm Capillary Refill: Less Than 3 Seconds Peripheral Pulses: 2+ Carotid (R), 2+ Carotid (L); 1+ Dorsalis Pedis (R), 1+ Left Dors-Pedis (L) (See free text); 2+ Radial Pulses (R), 2+ Radial Pulses (L) Gastrointestinal: normal bowel sounds, non tender, soft, no pulsatile mass Neurologic/Psychiatric: Alert, Oriented x3, No Motor/Sensory Deficits, Normal Mood/Affect Results Lab Laboratory Tests 09/13/22 05:37 Assessment/Plan Assessment/Plan 1 CLAUDIA LEDEZMA MD September 13, 2022 09:27
[2022-09-13 10:12] VITALS: BP 167/77
[2022-09-13] MEDS ORDERED: PANT40TA52 PO (10:54)
[2022-09-13] MEDS ORDERED: ARIP5TAB57 PO (10:54)
[2022-09-13] MEDS ORDERED: AMLO-250 PO (10:54)
[2022-09-13] MEDS ORDERED: GBPN600T PO (10:54)
[2022-09-13] MEDS ORDERED: SERT-413 PO (10:54)
[2022-09-13] MEDS ORDERED: SUCR1TAB PO (10:54)
[2022-09-13] MEDS ORDERED: DULA3PEN PO (10:54)
[2022-09-13] MEDS ORDERED: NPH,100I5 SC (10:54)
[2022-09-13] MEDS ORDERED: ATOR20TA66 PO (10:54)
[2022-09-13] MEDS: LORazepam 0.5 MG (ATIVAN) TABLET PO PRN ×2 (12:54→19:45)
[2022-09-13] MEDS: ACETAMINOPHEN 325 MG TABLET PO PRN (12:54)
--- NOTE | 2022-09-13 14:32 | Physical Therapy Evaluation ---
PT Evaluation-General Medical Diagnosis Admission Date September 10, 2022 at 19:35 Medical Diagnosis: pneumonia/left hip pain,fall,sepsis Onset Date: September 10, 2022 Therapy Diagnosis Therapy Diagnosis: debility/weakness Height/Weight Height (Feet): 5 Height (Inches): 11.00 Weight (Pounds): 255 Precautions Precautions/Isolations: Fall Prevention, Standard Precautions Weight Bear Status Right Lower Extremity: Right Weight Bearing/Tolerated Left Lower Extremity: Left Weight Bearing/Tolerated right bka Referral Physician: Bebo Reason for Referral: Evaluation/Treatment Medical History Pertinent Medical History: CVA, DM, HTN Additional Medical History right BKA with prosthesis Current History ER secondary to falling while walking into an eating establishment/dizzy/SOB Reviewed History: Yes Social History Home: Assisted Living Prior Prior Level of Function SCALE: Activities may be completed with or without assistive devices. 9-Xltvpgnovq-vtgtjys completes the activity by him/herself with no assistance from a helper. 5-Set-up or Clean-up Assistance-helper sets up or cleans up; patient completes activity. [place] assists only prior to or following the activity. 4-Supervision or Touching Assistance-helper provides verbal cues and/or touching/steadying and/or contact guard assistance as patient completes activity. Assistance may be provided throughout the activity or intermittently. 3-Partial/Moderate Assistance-helper does LESS THAN HALF the effort. [place] lifts, holds or supports trunk or limbs, but provides less than half the effort. 2-Substantial/Maximal Assistance-helper does MORE THAN HALF the effort. [place] lifts or holds trunk or limbs and provides more than half the effort. 6-Disskcrka-wrryqp does ALL the effort. Patient does none of the effort to complete the activity. Or, the assistance of 2 or more helpers is required for the patient to complete the activity. If activity was not attempted, code reason: 7-Patient Refused. 9-Not Applicable-not attempted and the patient did not perform the activity before the current illness, exacerbation or injury. 10-Not Attempted due to Environmental Limitations-(lack of equipment, weather restraints, etc.). 88-Not Attempted due to Medical Conditions or Safety Concerns. Bed Mobility: 6 Transfers (B,C,W/C): 6 Gait: 6 Indoor Mobility (Ambulation): Independent Prior Devices Use: None PT Evaluation-Current Subjective Patient agrees to therapy. He does states he is not feeling well and his back hurts. Pain Numeric Pain Scale: 8 Location: Medial, Lower Location Body Site: Back Pain Description: Chronic Objective Patient Orientation: Normal For Age Attachments: Oxygen ROM/Strength ROM Lower Extremities right BKA WFL/left LE WFL Strength Lower Extremities right LE 3+/5 grossly/left LE 4/5 grossly Integumentary/Posture Bowel Incontinence: No Bladder Incontinence: No Posture WFL Neuromuscular (Tone, Coordination, Reflexes) grossly intact Sensory Vision: Functional Hearing: Functional Transfers Lying to Sitting/Side of Bed(Q: 4 Sit to Stand (QC): 4 Chair/Kio-nr-Qmgsb Xfer(QC): 4 Toilet Transfer (QC): 4 Gait Mode of Locomotion: Walk Anticipated Mode of Locomotion: Walk Walk 10 feet (QC): 4 Walk 50 ft with 2 Turns(QC): 88 Walk 150 ft (QC): 88 Distance: 15' x 2 Gait Assistive Device: FWW Comments/Gait Description patient donned right BKA prosthesis with set up/CGA for safety with use of gait belt ambulation Balance Sitting Static: Fair Sitting Dynamic: Fair Standing Static: Fair Standing Dynamic: Fair Assessment/Needs Patient will benefit from skilled PT to address functional strength and mobility to improve current LOF to safely return to [place] at maximum LOF Rehab Potential: Fair PT Air Transportation Provider Goals Air Transportation Provider Goals PT Half-Way Goals Time Frame: September 25, 2022 Roll Left & Right (QC): 6 Sit to Lying (QC): 6 Lying-Sitting on Side/Bed(QC): 6 Sit to Stand (QC): 6 Chair/Err-ec-Troph Xfer(QC): 6 Toilet Transfer (QC): 6 Walk 10 feet (QC): 5 Walk 50ft with 2 Turns (QC): 5 Walk 150 ft (QC): 5 PT Plan Problem List Problem List: Activity Tolerance, Functional Strength, Safety, Balance, Gait, Transfer Treatment/Plan Treatment Plan: Continue Plan of Care Treatment Plan: Education, Functional Activity Erica, Functional Strength, Gait, Safety, Therapeutic Exercise, Transfers Treatment Duration: September 25, 2022 Frequency: 6 times per week Estimated Hrs Per Day: .25 hour per day Time Time In: 1400 Time Out: 1411 DATE: September 13, 2022 Total Billed Treatment Time: 11 Total Billed Treatment 1 visit [employer] 11 BRE Schaffer PT September 13, 2022 14:32
--- NOTE | 2022-09-13 14:51 | Occupational Therapy Eval ---
OT Evaluation-General/PLF Medical Diagnosis Admission Date September 10, 2022 at 19:35 Medical Diagnosis: pneumonia/left hip pain,fall,sepsis Onset Date: September 10, 2022 Therapy Diagnosis Therapy Diagnosis: weakness/pain Height/Weight Height (Feet): 5 Height (Inches): 11.00 Weight (Pounds): 255 Precautions Precautions/Isolations: Fall Prevention, Standard Precautions Weight Bear Status Weight Bearing Restriction: Weight Bearing/Tolerated Referral Physician: Bebo Referral Reason: Self Care, Evaluation/Treatment Medical History Pertinent Medical History: CVA, DM, HTN Additional Medical History RLE edema prevent proper fitting of Prosthesis, 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 8-Ljwvjwbear-xsektpn completes the activity by him/herself with no assistance from a helper. 5-Set-up or Clean-up Assistance-helper sets up or cleans up; patient completes activity. [place] assists only prior to or following the activity. 4-Supervision or Touching Assistance-helper provides verbal cues and/or touching/steadying and/or contact guard assistance as patient completes activity. Assistance may be provided throughout the activity or intermittently. 3-Partial/Moderate Assistance-helper does LESS THAN HALF the effort. [place] lifts, holds or supports trunk or limbs, but provides less than half the effort. 2-Substantial/Maximal Assistance-helper does MORE THAN HALF the effort. [place] lifts or holds trunk or limbs and provides more than half the effort. 1-Qouqdwxzu-fffubn does ALL the effort. Patient does none of the effort to complete the activity. Or, the assistance of 2 or more helpers is required for the patient to complete the activity. If activity was not attempted, code reason: 7-Patient Refused. 9-Not Applicable-not attempted and the patient did not perform the activity before the current illness, exacerbation or injury. 10-Not Attempted due to Environmental Limitations-(lack of equipment, weather restraints, etc.). 88-Not Attempted due to Medical Conditions or Safety Concerns. Self Care: Needed Some Help Functional Cognition: Independent DME/Equipment Comments prosthesis, [place] snot use walker Drive Self: Yes OT Current Status Subjective Resting in bed agreeable to OT Pain Numeric Pain Scale: 6 Location: Left Location Body Site: Hip Pain Description: Sharp Mental Status/Objective Patient Orientation: Person, Place, Time, Situation Attachments: Oxygen Current Upper Extremity ROM BUE ROM WFLS Upper Extremity Strength -4/5 unable to hold own weight w/ transfer transitional movements and supine lying to sit w/ ADS or HOB elevated ADL-Treatment Eating (QC): 6 Oral Hygiene (QC): 5 (set up in sitting) Shower/Bathe Self (QC): 7 Upper Body Dressing (QC): 4 (use of ADS) Lower Body Dressing (QC): 4 (ADS for transfer) On/Off Footwear (QC): 4 Toileting Hygiene (QC): 4 Education OT Patient Education: Correct positioning, Exercise program, Modified ADL techniques, Progress toward Goal/Update tx plan, Purpose of tx/functional activities, Reviewed precautions, Rehab process, Safety issues, Transfer techniques, Use of adapted equipment Teaching Recipient: Patient Teaching Methods: Demonstration, Discussion Response to Teaching: Verbalize Understanding, Return Demonstration OT Usp Goals Usp Goals Eating (QC): 6 Oral Hygiene (QC): 6 Toileting Hygiene (QC): 6 Shower/Bathe Self (QC): 6 Upper Body Dressing (QC): 6 Lower Body Dressing (QC): 6 On/Off Footwear (QC): 6 1=Demonstrate adherence to instructed precautions during ADL tasks. 2=Patient will verbalize/demonstrate understanding of assistive devices/modifications for ADL. 3=Patient will improve strength/tolerance for activity to enable patient to perform ADL's. OT Education/Plan Problem List/Assessment Assessment: Decreased Activ Tolerance, Decreased Safety Aware, Decreased UE Strength, Impaired Self-Care Skills, Restricted Funct UE ROM Discharge Recommendations Plan/Recommendations: Continue POC Treatment Plan/Plan of Care Treatment,Training & Education: Yes Patient would benefit from OT for education, treatment and training to promote independence in ADL's, mobility, safety and/or upper extremity function for ADL's. Plan of Care: ADL Retraining, Concurrent Therapy, Functional Mobility, Group Exercise/Act as Ind, UE Funct Exercise/Act Treatment Duration: September 18, 2022 Frequency: 3 times per week (3-5 times per week) Estimated Hrs Per Day: .25 hour per day Agreement: Yes Rehab Potential: Good Time Start Time: 14:00 Stop Time: 14:11 DATE: September 13, 2022 Total Time Billed (hr/min): 11 Billed Treatment Time EVM 11 min LINDY SHIELDS OT September 13, 2022 14:51
[2022-09-13] MEDS ORDERED: AZITHROMYCIN 250 MG TAB (ZITHROMAX) PO SCH (18:00)
[2022-09-13] MEDS: MELATONIN 3 MG TABLET PO PRN (19:45)
[2022-09-13] MEDS: LORazepam INJ 2 MG/ML (ATIVAN) VIAL IVP PRN (22:10)
[2022-09-13 22:50] VITALS: BP 151/80
[2022-09-13 23:55] VITALS: BP 136/82
[2022-09-14] MEDS: RT-ALBUTEROL/IPRATROPIUM 3 ML (DUONEB) VIAL INH SCH ×3 (02:15→15:47)
[2022-09-14 04:00] VITALS: BP 147/77
[2022-09-14] MEDS: CEFEPIME INJECTION 1,000 MG in NS (IVPB) 50 ML IV SCH ×2 (05:20→11:49)
[2022-09-14] MEDS: inSUlin ASPART (NovoLOG) 1 UNIT/0.01 ML (CHARGE PER UNIT) SC SCH ×3 (05:21→16:18)
[2022-09-14] MEDS: HYDROmorphone 2 MG/ML VIAL (DILAUDID) IV PRN (06:12)
[2022-09-14 06:16] LABS: BASOPHILS # (AUTO) 0.1 10^3/uL (0.0-0.1); BASOPHILS % (AUTO) 1 % (0-10); EOSINOPHILS # (AUTO) 0.2 10^3/uL (0.0-0.3); EOSINOPHILS % (AUTO) 3 % (0-10); HEMATOCRIT 50 % (40-54); HEMOGLOBIN 14.9 g/dL (13.3-17.7); LYMPHOCYTES # (AUTO) 0.9 10^3/uL (1.0-4.0); LYMPHOCYTES % (AUTO) 16 % (12-44); MEAN CORPUSCULAR HEMOGLOBIN 23 pg (25-34); MEAN CORPUSCULAR HGB CONC 30 g/dL (32-36); MEAN CORPUSCULAR VOLUME 76 fL (80-99); MEAN PLATELET VOLUME 10.1 fL (9.0-12.2); MONOCYTES # (AUTO) 0.8 10^3/uL (0.0-1.0); MONOCYTES % (AUTO) 14 % (0-12); NEUTROPHILS # (AUTO) 3.6 10^3/uL (1.8-7.8); NEUTROPHILS % (AUTO) 66 % (42-75); PLATELET COUNT 163 10^3/uL (130-400); WHITE BLOOD COUNT 5.5 10^3/uL (4.3-11.0)
[2022-09-14 06:32] LABS: ALBUMIN 3.5 GM/DL (3.2-4.5)
[2022-09-14 06:33] LABS: POTASSIUM 4.3 MMOL/L (3.6-5.0)
[2022-09-14 06:34] LABS: CALCIUM 9.3 MG/DL (8.5-10.1)
[2022-09-14 06:35] LABS: TOTAL PROTEIN 6.8 GM/DL (6.4-8.2)
[2022-09-14 06:37] LABS: BILIRUBIN,TOTAL 0.9 MG/DL (0.1-1.0)
[2022-09-14 06:39] LABS: CREATININE SERUM 0.86 MG/DL (0.60-1.30)
[2022-09-14 06:42] LABS: MAGNESIUM 1.8 MG/DL (1.6-2.4)
[2022-09-14 08:06] VITALS: BP 173/87
[2022-09-14 08:29] VITALS: BP 173/87
[2022-09-14] MEDS: SENNOSIDES 8.6 MG (SENOKOT) TAB PO SCH (08:44)
[2022-09-14] MEDS: DOCUSATE SODIUM 100 MG (COLACE) CAP PO SCH (08:44)
--- NOTE | 2022-09-14 09:55 | Progress Note - Hospitalist ---
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 Currently he is on Precedex and tolerating biPAP well but his ABG still appear acidotic. IV abx maintained. Presumed TAMAR. Subjective/Events-last exam Complaining of back pain since falling so will check lumbar spine xray Just woke up Still weak Lungs are clear Labs reviewed Improved dyspnea No BM yet declined any more laxatives Review of Systems General: Fatigue, Malaise Pulmonary: Dyspnea Focused Exam Time of Focused Exam: 17:31 Objective Exam Vital Signs Vital Signs Date Time Temp Pulse Resp B/P (MAP) Pulse Ox O2 Delivery O2 Flow Rate FiO2 09/14/22 08:29 36.6 90 92 28 09/14/22 08:28 Nasal Cannula 3.00 09/14/22 08:06 20 173/87 (115) Capillary Refill : Less Than 3 Seconds General Appearance: No Apparent Distress, WD/WN, Chronically ill Respiratory: No Accessory Muscle Use, No Respiratory Distress, Decreased Breath Sounds Cardiovascular: Regular Rate, Rhythm Neurologic/Psychiatric: Alert, Oriented x3, No Motor/Sensory Deficits, Normal Mood/Affect Results/Procedures Lab Laboratory Tests 09/14/22 05:53 Patient resulted labs reviewed. Assessment/Plan Assessment and Plan Assess & Plan/Chief Complaint Assessment: Acute on chronic respiratory failure hypoxic and hypercapnea Presumed TAMAR? Bilateral PNA DM HTN TERENCE h/o right BKA Low back pain after fall-L spine xray ordered Plan: IV abx O2 Nebs Monitor closely Home O2 eval Lumbar spine xray Critical Care Critically Ill Patient Diagnosis/Problems Diagnosis/Problems (1) Acute on chronic respiratory failure with hypoxia and hypercapnia (2) Pneumonia of both lower lobes (3) Sepsis Status: Acute Qualifiers: Sepsis type: sepsis due to unspecified organism Sepsis acute organ dysfunction status: without acute organ dysfunction Qualified Codes: A41.9 - Sepsis, unspecified organism (4) Uncontrolled diabetes mellitus Status: Chronic STEPHANIE GALEANA DO September 14, 2022 09:55
[2022-09-14] MEDS ORDERED: OXC5T PO (10:20)
[2022-09-14] MEDS ORDERED: SNN187T PO (10:20)
[2022-09-14] MEDS ORDERED: CEFD300C3 PO (10:20)
--- NOTE | 2022-09-14 10:22 | Discharge Summary ---
Discharge Summary Hospital Course Was the Problem List Reviewed?: Yes Problems/Dx: (1) Acute on chronic respiratory failure with hypoxia and hypercapnia (2) Pneumonia of both lower lobes Qualifiers: Qualified Codes: J18.9 - Pneumonia, unspecified organism (3) Sepsis Status: Acute Qualifiers: Qualified Codes: A41.9 - Sepsis, unspecified organism (4) Uncontrolled diabetes mellitus Status: Chronic Hospital Course Date of Admission: September 10, 2022 at 19:35 Admission Diagnosis : Family Physician/Provider: [place] [place] Date of Discharge: 09/14/22 Discharge Diagnosis: [ ] Hospital Course: Lengthy course after he was admitted to ICU for resp failure hypercapneic type for bilateral pNA so IV abx initiated along with biPAP with Precedex. Labs remained stable. Overall he was able to regain function quickly and was DC in improved condition back to [place] in [facility]. Labs and Pending Lab Test: Laboratory Tests 09/13/22 12:12: Glucometer 158H 09/13/22 16:08: Glucometer 187H 09/13/22 20:31: Glucometer 171H 09/14/22 05:17: Glucometer 150H 09/14/22 05:53: White Blood Count 5.5, Red Blood Count 6.61H, Hemoglobin 14.9, Hematocrit 50, Mean Corpuscular Volume 76L, Mean Corpuscular Hemoglobin 23L, Mean Corpuscular Hemoglobin Concent 30L, Red Cell Distribution Width 18.7H, Platelet Count 163, Mean Platelet Volume 10.1, Immature Granulocyte % (Auto) 0, Neutrophils (%) (Auto) 66, Lymphocytes (%) (Auto) 16, Monocytes (%) (Auto) 14H, Eosinophils (%) (Auto) 3, Basophils (%) (Auto) 1, Neutrophils # (Auto) 3.6, Lymphocytes # (Auto) 0.9L, Monocytes # (Auto) 0.8, Eosinophils # (Auto) 0.2, Basophils # (Auto) 0.1, Immature Granulocyte # (Auto) 0.0, Sodium Level 139, Potassium Level 4.3, Chloride Level 102, Carbon Dioxide Level 25, Anion Gap 12, Blood Urea Nitrogen 15, Creatinine 0.86, Estimat Glomerular Filtration Rate 97, BUN/Creatinine Ratio 17, Glucose Level 144H, Calcium Level 9.3, Corrected Calcium 9.7, Magnesium Level 1.8, Total Bilirubin 0.9, Aspartate Amino Transf (AST/SGOT) 25, Alanine Aminotransferase (ALT/SGPT) 17, Alkaline Phosphatase 71, Total Protein 6.8, Albumin 3.5 Microbiology 09/10/22 MRSA Screen - Final, Complete MRSA not isolated 09/10/22 Blood Culture - Preliminary, Resulted Corynebactoerium aurimucosum No Susceptibility Performed Home Meds Active Cefdinir 300 Mg Capsule 300 Mg PO BID Senna Lax (Sennosides) 8.6 Mg Tablet 8.6 Mg PO BID Oxyir Tablet (Oxycodone HCl) 5 Mg Tab 5 Mg PO Q4HR PRN Reported Aripiprazole 5 Mg Tablet 5 Mg PO DAILY Sertraline HCl 50 Mg Tablet 50 Mg PO DAILY Amlodipine Besylate 5 Mg Tablet 5 Mg PO DAILY Trulicity (Dulaglutide) 3 Mg/0.5 Ml Pen.injctr 3 Mg PO MON Humulin N Kwikpen (Insulin NPH Human Isophane) 100 Unit/Ml (3 Ml) Insuln.pen 50 Units SC BID Gabapentin 600 Mg Tablet 600 Mg PO 0800,1200,2000 Atorvastatin Calcium 20 Mg Tablet 20 Mg PO HS Pantoprazole Sodium 40 Mg Tablet.dr 40 Mg PO BID Sucralfate 1 Gram Tablet 1 Gm PO ACHS Jardiance (Empagliflozin) 25 Mg Tablet 25 Mg PO DAILY Assessment/Pt Instructions PCP 1 week Discharge Planning: <30 minutes discharge planning Discharge Instructions Discharge Diet: ADA Diet Activity as Tolerated: Yes Discharge Physical Examination Vital Signs Vital Signs Date Time Temp Pulse Resp B/P (MAP) Pulse Ox O2 Delivery O2 Flow Rate FiO2 09/14/22 08:29 36.6 90 92 28 09/14/22 08:28 Nasal Cannula 3.00 09/14/22 08:06 20 173/87 (115) General Appearance: No Apparent Distress, WD/WN, Chronically ill Respiratory: No Accessory Muscle Use, Decreased Breath Sounds Cardiovascular: Regular Rate, Rhythm Allergies: Coded Allergies: No Known Drug Allergies (Unverified , 05/30/20) Discharge Summary Date of Admission September 10, 2022 at 19:35 Date of Discharge Discharge Date: September 14, 2022 Admission Diagnosis Assessment: Acute on chronic respiratory failure Presumed TAMAR? Bilateral PNA DM HTN TERENCE h/o right BKA Plan: IV abx O2 Nebs Monitor closely Intubation risk Discharge Diagnosis Assessment: Acute on chronic respiratory failure hypoxic and hypercapnea Presumed TAMAR? Bilateral PNA DM HTN [place]ENCE h/o right BKA Low back pain after fall-L spine xray ordered Plan: IV abx O2 Nebs Monitor closely Home O2 eval Lumbar spine xray (1) Acute on chronic respiratory failure with hypoxia and hypercapnia (2) Pneumonia of both lower lobes Qualifiers: Qualified Codes: J18.9 - Pneumonia, unspecified organism (3) Sepsis Status: Acute Qualifiers: Qualified Codes: A41.9 - Sepsis, unspecified organism (4) Uncontrolled diabetes mellitus Status: Chronic STEPHANIE GALEANA DO September 14, 2022 10:22
--- NOTE | 2022-09-14 10:22 | D/C HH Face to Face Order ---
D/C Face to Face Orders Reconcile Patient Problems Problems Reviewed?: Yes Instructions for Patient Miriam Patient Instructions/FollowUp: PCP 1 week Physician to follow Patient: [facility] Discharge Diet for Home: ADA Diet Patient Problems: PNA Patient Data-Allergies,Ht & Wt Patient Allergies: Coded Allergies: No Known Drug Allergies (Unverified , 05/30/20) Height (Feet): 5 Height (Inches): 11.00 Weight (Pounds): 255 Home Health Need/Face to Face Date of Face to Face: September 14, 2022 Clinical Findings: Generalized weakness and fatigue, Instability, Muscle weakness I have seen Pt pvnz-vj-cwnx: Yes Discharged To: Home Diagnosis/Conditions: PNA Patient is Homebound due to: CognItive deficits, Madisyn fall risk due to instabilty, Shortness of breath/distress Homebound Status Due to the above stated illness, injury or surgical procedure (medical condition or diagnosis) and associated clinical findings, the patient is homebound because of his/her inability to leave home except with aid of a supportive device and/or person AND leaving the home requires a considerable and taxing effort or is medically contraindicated. Pt req the following assistanc: Wheelchair Home Health Nursing Orders Home Health Services Order: [employer] Machine Adjuster-Evaluate & Treat, Physical Therapy-Evaluate & Treat Home Health Infusion Therapy Line Start Date: September 11, 2022 Certify Stmt I certify that this patient is under my care and that I, a nurse practitioner or a physician; a university administrative assistant working with me, had a face to face encounter that - meets the physician face to face encounter requirements with this patient as dated. STEPHANIE GALEANA DO September 14, 2022 10:22
--- NOTE | 2022-09-14 10:54 | Occ Therapy Progress Note ---
Therapy Progress Note Patient out of room in radiology, RN reports patient to DC to [facility] today, OT to DC LINDY SHIELDS OT September 14, 2022 10:54
[2022-09-14 11:32] VITALS: BP 160/82
--- NOTE | 2022-09-14 13:29 | Diagnostic Imaging Report ---
INDICATION: Back pain following a fall. COMPARISON: While I have no previous for direct comparison, it is interpreted in correlation with imaging from an abdominopelvic CT of 10/08/2019 that includes sagittal reconstructions. FINDINGS: There is a new superior endplate fracture to the L2 level resulting in about 10-20% stature loss at its middle third with some buckling of its cortex anteriorly. No retropulsion evident. No loss of the posterior cortical height. Remaining lumbar levels are maintained and stable. There is no listhesis. There are some chronic degenerative changes, greatest at the C4-C5 and L5-S1 levels, unchanged. IMPRESSION: Interval development of a superior endplate fracture of L2 without retropulsion. Radiographically, its precise acuity is indeterminate but new from a comparison study of 2019 and in the setting of trauma and new back pain would be considered likely acute. MRI may be of benefit for further evaluation to assess for marrow edema, particularly if treatment such as kyphoplasty would be considered. Dictated by: Dictated on workstation # [id number]
[2022-09-14 16:22] VITALS: BP 171/86
[2022-09-14 16:51] VITALS: BP 171/86
[2022-09-14] MEDS ORDERED: ENOXAPARIN 40 MG/0.4 ML (LOVENOX) SYR SC SCH (21:00)
== END 2022-09-14 16:53 | disposition home health service (06) | DRG 871 ==
LOC: EDUNIT# 16:25 → ER FS 16:27 → ICU 19:35 → 4TH 09-13 10:47
PROVIDERS: ADMIT Internal Medicine; ATTEND Internal Medicine
PROC: 5A09357 Assistance with Respiratory Ventilation, Less than 24 Consecutive Hours, Continuous Positive Airway Pressure (ICD-10-PCS; principal; 2022-09-11)
PROC: 5A0935A Assistance with Respiratory Ventilation, Less than 24 Consecutive Hours, High Flow/Velocity Cannula (ICD-10-PCS; 2022-09-11)
DX: A41.9 Sepsis, unspecified organism (principal); J18.9 Pneumonia, unspecified organism; J96.22 Acute and chronic respiratory failure with hypercapnia; J96.21 Acute and chronic respiratory failure with hypoxia; N17.9 Acute kidney failure, unspecified; J44.0 Chronic obstructive pulmonary disease with (acute) lower respiratory infection; J44.1 Chronic obstructive pulmonary disease with (acute) exacerbation; R35.0 Frequency of micturition; E11.65 Type 2 diabetes mellitus with hyperglycemia; G47.33 Obstructive sleep apnea (adult) (pediatric); E78.00 Pure hypercholesterolemia, unspecified; I10 Essential (primary) hypertension; K21.9 Gastro-esophageal reflux disease without esophagitis; Z79.4 Long term (current) use of insulin; Z79.84 Long term (current) use of oral hypoglycemic drugs; Z89.511 Acquired absence of right leg below knee; Z79.899 Other long term (current) drug therapy; M54.50 Low back pain, unspecified; W19.XXXA Unspecified fall, initial encounter
CPT/HCPCS: 36415; 36600; 71045; 71275; 72100; 73502; 80053; 81000; 82805; 82947; 83605; 83735; 84100; 85025; 86141; 87040; 87077; 87081; 94640; 94660; 94664; 94760; 94761